=== PATIENT | female | born 1950 | race Caucasian/White ===

== ENCOUNTER 2018-10-08 11:19 | Observation (INO) | payer OTHER ==
--- OUTSIDE RECORDS SUMMARY | 2018-10-08 11:27 | XMS REPORT | Clinical Summary ---
:1950 Author Organization [facility] Address [address] [place] [address] Care Team Providers Name Role Phone Duran Uribe MD Primary Care Provider Allergies Active Allergy Reactions Severity Noted Date Comments Amoxicillin-Pot Clavulanate 07/10/2017 Terrible belly cramps and vomiting Ciprofloxacin 08/13/2017 unknown Clindamycin Anaphylaxis High 08/13/2017 Doxycycline Rash Low 08/13/2017 Levofloxacin Anaphylaxis High 08/13/2017 Nitrofurantoin 08/13/2017 Shortness of breath Monohyd/M-Cryst No Known Allergies 03/23/2016 Sulfa (Sulfonamide Rash Low 08/13/2017 Antibiotics) Vancomycin 08/13/2017 Unknown Medications Medication Sig Dispensed Refills Start Date End Date Status dicyclomine (BENTYL) Take 1 capsule 120 capsule 0 11/15/2017 11/16/19 Active 10 MG capsule (10 mg total) 19 by mouth 4 (four) times a day before meals and nightly. conjugated estrogens Insert 0.5 g 30 g 5 04/29/2018 04/29/20 Active (PREMARIN) 0.625 into the 19 mg/gram vaginal vagina daily. creamIndications: Apply with Vaginal atrophy finger to vagina daily for 2 weeks. Following this, apply twice weekly. lisinopril Take 5 mg by 0 06/05/2017 Active (PRINIVIL,ZESTRIL) 5 mouth 2 (two) mg tablet times a day. metoprolol tartrate Take 50 mg by 2 06/28/2017 Active (LOPRESSOR) 50 mg mouth 2 (two) tablet times a day. glipiZIDE Take 5 mg by 4 07/08/2017 Active (GLUCOTROL) 5 MG 24 mouth daily. hr tablet HYDROcodone-acetamin Take 1 tablet 0 Active ophen (NORCO) by mouth every 7.5-325 mg per 6 (six) hours tablet as needed for moderate pain. famotidine (PEPCID) Take 20 mg by 0 Active 20 MG tablet mouth 2 (two) times a day. magnesium oxide Take 400 mg by 0 Active (MAG-OX) 400 mg mouth 2 (two) tablet times a day. polyethylene glycol Take 17 g by 0 Active (MIRALAX) 17 gram mouth daily as packet needed for constipation. psyllium husk Take by mouth 0 Active (METAMUCIL) 3.4 daily. gram/5.4 gram powder potassium chloride Take 10 mEq by 0 Active (KLOR-CON) 10 MEQ CR mouth 2 (two) tablet times a day. DOCUSATE SODIUM Take 1 tablet 0 Active (COLACE ORAL) by mouth 2 (two) times a day. b complex vitamins Take 1 tablet 0 Active (B COMPLEX-VITAMIN by mouth B12) tablet daily. pediatric Chew. 0 Active multivitamin-iron tablet,chewable donepezil (ARICEPT) Take 10 mg by 0 Active 5 MG tablet mouth nightly. diazePAM (VALIUM) 2 Take 2 mg by 0 Active MG tablet mouth 3 (three) times a day. ibuprofen Take 800 mg by 0 Active (ADVIL,MOTRIN) 200 mouth 2 (two) MG tablet times a day. oxybutynin Take 1 tablet 90 tablet 0 06/18/2018 06/18/19 Active (DITROPAN) 5 MG (5 mg total) 20 tablet by mouth 3 (three) times a day as needed for bladder spasms. pyridoxine, vitamin Take 100 mg by 0 Active B6, (B-6) 100 MG mouth. tablet lansoprazole Take 30 mg by 0 Active (PREVACID) 30 MG mouth. capsule primidone (MYSOLINE) 0 2018 Active 50 MG tablet diazePAM (VALIUM) 2 Take 2 mg by 0 06/04/2018 Active MG tablet mouth. cefdinir (OMNICEF) Take 1 capsule 14 capsule 0 05/05/2018 05/12/20 300 MG capsule (300 mg total) 18 by mouth 2 (two) times a day for 7 days. cefpodoxime (VANTIN) Take 1 tablet 14 tablet 0 05/27/2018 06/03/20 200 MG tablet (200 mg total) 18 by mouth 2 (two) times a day for 7 days. tetracycline Take 500 mg by 0 06/06/20 Discontinued (ACHROMYCIN,SUMYCIN) mouth 3 18 250 MG capsule (three) times a day. cefpodoxime (VANTIN) Take 1 tablet 14 tablet 0 06/06/2018 06/13/20 200 MG tablet (200 mg total) 18 by mouth 2 (two) times a day for 7 days. phenazopyridine Take 1 tablet 10 tablet 0 06/06/2018 06/09/20 (PYRIDIUM) 100 MG (100 mg total) 18 tablet by mouth 3 (three) times a day as needed for bladder spasms for up to 3 days. traMADol (ULTRAM) 50 Take 1 tablet 20 tablet 0 06/06/2018 06/16/20 mg tablet (50 mg total) 18 by mouth every 6 (six) hours as needed for moderate pain for up to 10 days. oxybutynin Take 1 tablet 90 tablet 0 06/19/2018 06/25/19 Discontinued (DITROPAN) 5 MG (5 mg total) 19 tablet by mouth 3 (three) times a day as needed for bladder spasms for up to 30 days. oxybutynin Take 1 tablet 30 tablet 11 06/25/2018 07/25/19 (DITROPAN) 5 MG (5 mg total) 19 tablet by mouth 3 (three) times a day as needed for bladder spasms for up to 30 days. Active Problems Problem Noted Date Chronic cystitis 07/09/2018 Overview: Mild bladder irrigation today. Significant bladder pain, tolerates little irrigation so might not clear infection. pretreat uribel Lidocaine tolerated Multiple drug allergies 07/09/2018 Overview: Consider allergy testing to determine if true allergies to give us more options. TIA (transient ischemic attack) 09/03/2017 Urinary tract infection 08/20/2017 Rectal prolapse 08/19/2017 Essential tremor 03/23/2016 Focal dystonia 03/23/2016 Idiopathic peripheral neuropathy 03/23/2016 Urticaria 03/23/2016 Altered mental state 03/02/2016 Anxiety 10/31/2015 Allergic rhinitis 04/29/2015 Arthralgia of right knee 04/29/2015 Acute kidney failure, unspecified 04/29/2015 Acute pain of left shoulder 03/17/2015 Encounters Date Type Specialty Care Team Description 09/26/2018 Telephone Urology Enriqueta Hernandez MD 07/08/2018 Office Visit Urology Yesenia Bonds, Chronic cystitis ( Primary Dx); DIEGO Multiple drug allergies 06/30/2018 Telephone UrologEnriqueta Gaytan MD 06/25/2018 Office Visit Urology Enriqueta Hernandez Frequent UTI (Primary Dx); MD Reilly Chronic cystitis 06/25/2018 Telephone UrologEnriqueta Gaytan MD 06/19/2018 Telephone Urology Enriqueta Hernandez MD 06/19/2018 Orders Only Urology Enriqueta Hernandez MD 06/19/2018 Telephone Urology Enriqueta Hernandez MD 06/18/2018 Telephone Urology Enriqueta Hernandez MD 06/18/2018 Refill Urology Enriqueta Hernandez MD 06/06/2018 Anesthesia Event Urology Raymundo Mccall, DO 06/06/2018 Surgery Urology Enriqueta Hernandez CYSTOSCOPY WITH MD Reilly BLADDER BIOPSY, CYSTOGRAM 06/06/2018 Hospital Encounter Urology Enriqueta Hernandez Recurrent UTI MD Reilly 05/28/2018 Telephone Urology Enriqueta Hernandez MD 05/27/2018 Procedure visit UrologEnriqueta Gaytan Recurrent UTI MD Reilly (Primary Dx) 05/05/2018 Orders Only UrologEnriqueta Gaytan MD 05/05/2018 Telephone UrologEnriqueta Gaytan MD 04/29/2018 Office Visit Urology Enriqueta Hernandez Frequent UTI (Primary Dx); MD Reilly Vaginal atrophy 02/26/2018 Telephone Urology Mariaelena Martinez MD 12/26/2017 Telephone Gastroenterology Kurt Salas LVN 12/13/2017 Office Visit General Surgery Oswald Perdomo Functional diarrhea (Primary Dx); MD Perez Chronic urinary tract infection 11/15/2017 Office Visit General Surgery Oswald Perdomo Rectal prolapse ( Primary Dx); MD Perez Lower abdominal pain; Diarrhea, unspecified type after 10/07/2017 Family History Medical History Relation Name Comments Breast cancer Mother Relation Name Status Comments Father Mother Social History Tobacco Use Types Packs/Day Years Used Date Former Smoker Cigarettes Quit: 2001 Smokeless Tobacco: Never Used Alcohol Use Drinks/Week oz/Week Comments No occasional Sex Assigned at Date Recorded Not on file Job Start Date Occupation Industry Not on file Not on file Not on file Travel History Travel Start Travel End No recent travel history available. Last Filed Vital Signs Vital Sign Reading Time Taken Blood Pressure 131/80 07/08/2018 11:37 AM [facility] Pulse 102 07/08/2018 11:37 AM [facility] Temperature 36.7 C (98.1 F) 06/06/2018 2:00 PM [facility] Respiratory Rate 19 06/06/2018 2:00 PM [facility] Oxygen Saturation 94% 06/06/2018 2:00 PM [facility] Inhaled Oxygen Concentration - - Weight 68.2 kg (150 lb 5 oz) 06/06/2018 9:55 AM [facility] Height 182.9 cm (6') 06/06/2018 9:55 AM [facility] Body Mass Index 20.39 06/06/2018 9:55 AM [facility] Plan of Treatment Health Maintenance Due Date Last Done Comments BREAST CANCER SCREENING 1998 COLON CANCER SCREENING 1998 SHINGLES VACCINES (#1) 1998 65+ PNEUMOCOCCAL VACCINE (1 of 2 - PCV13) 2013 PNEUMOCOCCAL POLYSACCHARIDE VACCINE AGE 65 AND OVER 2013 INFLUENZA VACCINE 01/15/2019 Procedures Procedure Name Priority Date/Time Associated Comments Diagnosis URINE CULTURE Routine 06/25/2018 10:39 Frequent UTI Results for this AM [facility] procedure are in the results section. [id number] Routine 06/25/2018 9:24 Frequent UTI Results for this AM [facility] procedure are in the results section. POC URINALYSIS Routine 06/25/2018 9:24 Frequent UTI Results for this DIPSTICK AM [facility] procedure are in the results section. SURGICAL PATHOLOGY Routine 06/06/2018 3:36 Results for this REQUEST PM [facility] procedure are in the results section. CYTOLOGY Routine 06/06/2018 1:23 Results for this (NON-GYNECOLOGICAL) PM [facility] procedure are in REQUEST the results section. FL CYSTOGRAM MINIMUM Routine 06/06/2018 12:50 Results for this 3 VW PM [facility] procedure are in the results section. POC GLUCOSE Routine 06/06/2018 12:48 Results for this PM [facility] procedure are in the results section. CO AN ELECTIVE Routine 06/06/2018 11:53 SUPRAGLOTTIC AIRWAY AM [facility] Procedure Note - Rebecca Arshad CRNA - 06/06/2018 11:53 AM [facility] ANESTHESIA INTUBATION Performed by: Rebecca Arshad CRNA Authorized by: Zack Puga MD Location: OR Urgency: Elective Difficult Airway: No Anesthesiologist: Raymundo Mccall DO Resident/SANITARY ENGINEER/AA: Rebecca Arshad CRNA Performed by: resident/SANITARY ENGINEER/AA Preoxygenated with 100% O2: Yes Final Airway Type: Supraglottic airway Final LMA: Ambu LMA Size: 4 Number of Attempts at Approach: 1 CYSTO, WITH BLADDER BIOPSY 06/06/2018 11:00 AM [facility] Recurrent UTI Special Needs REQ 1100 START POC GLUCOSE Routine 06/06/2018 10:26 AM Results for this [facility] procedure are in the results section. URINE CULTURE Routine 05/27/2018 11:03 AM Recurrent UTI Results for this [facility] procedure are in the results section. POC URINALYSIS Routine 05/27/2018 10:20 AM Recurrent UTI Results for this DIPSTICK [facility] procedure are in the results section. after 10/07/2017 Results Urine culture (06/25/2018 10:39 AM [facility])Only the most recent of2 resultswithin the time period is included. Urine culture SEE NOTE [facility] Comment: CULTURE, URINE, ROUTINE MICRO NUMBER:[id number] TEST STATUS: FINAL SPECIMEN SOURCE: URINE SPECIMEN QUALITY:ADEQUATE RESULT:Upon further incubation: Three or more organisms present, each greater than 10,000 cu/mL. May represent normal leandro contamination from external genitalia. No further testing is required. Specimen Urine Resulting Agency Comment Performing Organization Information: Site ID: [id number] Name: [facility] Address: [address] [place] [id number] Director: Karley Pete Performing Organization Address City/State/Zipcode Phone Number [employer] [place] [address] POC BLADDER SCAN/PVR (06/25/2018 9:24 AM [facility]) Volume 69mlComment: pvr Specimen Urine POC urinalysis dipstick (06/25/2018 9:24 AM [facility])Only the most recent of2 resultswithin the time period is included. Color urine, POC Yellow Clarity urine, POC Clear Glucose urine, POC Negative Negative Bilirubin urine, POC Negative Negative Ketones urine, POC Negative Negative Specific gravity urine, POC 1.025 1.005 - 1.030 Blood urine, POC Large (A) Negative pH urine, POC 6.5 5.0, 5.5, 6.0, 6.5, 7.0, 7.5, 8.0, 8.5 Protein urine, POC 1+ (A) Negative Urobilinogen urine, POC <2.0 <2.0 Nitrite urine, POC Positive (A) Negative Leukocyte esterase urine, POC Moderate (A) Negative Specimen Urine Surgical pathology request (06/06/2018 3:36 PM [facility]) [facility] DEPARTMENT OF PATHOLOGY AND GENOMIC MEDICINE Surgical pathology report See link below for PDF [facility] DEPARTMENT OF Lab Report PATHOLOGY AND GENOMIC MEDICINE Result status This is Final Report [facility] DEPARTMENT OF for [id number] PATHOLOGY AND GENOMIC MEDICINE Performing Organization Address [facility] Phone Number [facility] DEPARTMENT OF PATHOLOGY AND [address] [place] [phone] GENOMIC MEDICINE Cytology (non-gynecological) request (06/06/2018 1:23 PM [facility]) [facility] DEPARTMENT OF PATHOLOGY AND GENOMIC MEDICINE Cytology See link below for PDF [facility] DEPARTMENT OF (non-gynecological) report Lab Report PATHOLOGY AND GENOMIC MEDICINE Result status This is Final Report [facility] DEPARTMENT OF for [id number] PATHOLOGY AND GENOMIC MEDICINE Performing Organization Address [facility] Phone Number [facility] DEPARTMENT PATHOLOGY AND [address] [place] [phone] [facility] MEDICINE [place] Cystogram [employer] 3 Views (06/06/2018 12:50 PM [facility]) Narrative Performed At IMPRESSION:C-arm Fluoroscopy under 1 hour was provided in the OR for RADIANT the referring physician.A radiologist was not present during the procedure. Refer to the Operative report issued by the performing provider for procedure details. Procedure Note Interface, Radiology Results Incoming - 06/06/2018 4:34 PM [facility] IMPRESSION: C-arm Fluoroscopy under 1 hour was provided in the OR for the referring physician. A radiologist was not present during the procedure. Refer to the Operative report issued by the performing provider for procedure details. Performing Organization Address City/[facility] Phone Number [facility] [address] [place] [phone] POC glucose (06/06/2018 12:48 PM [facility])Only the most recent of2 resultswithin the time period is included. POC glucose 115 (H) 65 - 99 mg/dL [facility] Comment: Meter ID: [id number] Bit Sharpener Operator: Concetta Ortega Performing Organization Address City/State/Zipcode Phone Number [facility] DEPARTMENT OF PATHOLOGY AND [address] [place] [address] GENOMIC MEDICINE [address] [address] after 10/07/2017 Insurance Payer Benefit Plan / Group Subscriber ID Type Phone Address MEDICARE MEDICARE PART A AND B xxxxxxxxxx Medicare [place], [place] MEDICARE MEDICARE PART A AND B xxxxxxxxxx Medicare [place] [employer] xxxxxx-xx Commercial Advance Directives Patient has advance care planning documents on file. For more information, please contact:[address] [address]
--- OUTSIDE RECORDS SUMMARY | 2018-10-08 11:27 | XMS REPORT | Continuity of Care Document ---
:1950 Author Organization Interface Problems Problem Status Onset Classification Date Comments Source Date Reported Urinary tract 12/17/2017 [facility] infection, site 8 not specified Escherichia Active Problem 12/17/2017 Problem [facility] coli<sup>1, 8 added by 2</sup> Discern Expert. TIA Active [facility] 8 [place] UTI Active [facility] 8 [place] R41.3 - OTHER Active [facility] AMNESIA 7 [place] LEFT SHOULDER Active [facility] DISLOCATION PAIN 7 [facility] Transient 12/17/2017 [facility] cerebral ischemic attack, unspecified Acute kidney 12/17/2017 [facility] failure, unspecified Type 2 diabetes 12/17/2017 [facility] mellitus with diabetic neuropathy, unspecified Unspecified 12/17/2017 [facility] dementia without behavioral disturbance Obstructive and 12/17/2017 [facility] reflux uropathy, unspecified Unspecified 12/17/2017 [facility] Escherichia coli [E. coli] as the cause of diseases classified elsewhere Essential 12/17/2017 [facility] hypertension Body mass index 12/17/2017 [facility] 23.0-23.9, adult Personal history 12/17/2017 [facility] of urinary infections TRANSIENT Active [facility] CEREBRAL [place] ISCHEMIC ATTACK, UNSP URINARY TRACT Active [facility] INFECTION, SITE [place] NOT SPECIF Medications Medication Details Route Status Patient Ordering Order Source Instructions Provider Date Norvasc 10 mg, 2 tab, No Longer Route: PO, Active 018 [place] [facility] form: TAB, Daily, Dosing Weight 76.96, kg, Start date: 09/09/17 9:00:00 CDT, Duration: 30 day, Stop date: 10/08/17 9:00:00 CDTNotes: (Same as: Norvasc) amLODIPine 5 mg, 1 tab, Inactive Route: PO, 018 [place] [facility] form: TAB, ONCE, Start date: 09/08/17 15:13:00 CDT, Stop date: 09/08/17 15:13:00 CDTNotes: (Same as: Norvasc) Metamucil 3.4 gm, 1 pkt, No Longer MH Route: PO, Active 018 [place] [facility] Form: PDR/REC, Dosing Weight 76.96, kg, Daily, Start date: 09/08/17 9:00:00 CDT, Duration: 30 day, Stop date: 10/07/17 9:00:00 CDTNotes: (Same as: Metamucil) Mix in 8 oz liquid with meal. Haldol 2 mg, 2 tab, Inactive Route: PO, 018 [place] Drug form: TAB, ONCE, Dosing Weight 76.96, kg, PRN Agitation, Priority: NOW, Start date: 09/08/17 0:32:00 CDTNotes: (Same as: Haldol) Norvasc 5 mg, 1 tab, No Longer Route: PO, Active 018 [place] Drug form: TAB, Daily, Dosing Weight 76.96, kg, Priority: NOW, Start date: 09/07/17 13:01:00 CDT, Duration: 30 day, Stop date: 10/07/17 9:00:00 CDTNotes: (Same as: Norvasc) Invanz 1 gm, Route: No Longer IVPB, [id number], Active 018 [place] Dosing Weight 76.96, kg, Start date: 09/06/17 12:00:00 CDT, Duration: 14 day, Stop date: 09/19/17 12:00:00 CDT, ABX Indication: Urinary Tract InfectionNotes : (Same as: INVanz) Refrigerate. NOT COMPATIBLE WITH D5W. Stable in refrigerator for 24 hours MEDICATION WASTE Product Size: 1000 mg Product Wasted: ___ mg meropenem + 500 mg, Route: Inactive MH Sodium IVPB, ABXQ8H, 018 [place] Chloride 0.9% Dosing Weight IV 100 mL 76.96, kg, CrCL=30 -49 ml/min, Extended infusion, infuse over 3 hours, Start date: 09/06/17 0:00:00 CDT, Duration: 10 day, Stop date: 09/15/17 16:00:00 CDT, ABX Indication: Urinary Tract InfectionNotes : Same as [place] MEDICATION WASTE Product Size: 500 mg Product Wasted: ___ mg multivitamin 1 tab, Route: No Longer MH with minerals PO, Drug Form: Active 018 [place] TAB, Daily, Start date: 09/05/17 9:00:00 CDT, Duration: 30 day, Stop date: 10/04/17 9:00:00 CDTNotes: (Same as:Thera-M, Theragran-M) WASTE: F/P - Black; E - Municipal Trash Bin Give with food. multivitamin 1 mL, Route: Inactive MH with iron PO, Dosing Marcellus Tripp Weight 76.96, kg, Daily, Start date: 09/04/17 9:00:00 CDT, Duration: 30 day, Stop date: 10/03/17 9:00:00 CDT Miralax 17 gm, 1 pkt, No Longer Route: PO, Active 018 [place] [facility] form: PWDR, Daily, Dosing Weight 76.96, kg, Start date: 09/04/17 9:00:00 CDT, Duration: 30 day, Stop date: 10/03/17 9:00:00 CDTNotes: Dissolve in 8 oz of water or juice. (Same as: Miralax) Tylenol 650 mg, 2 tab, No Longer Route: PO, Active 018 [place] Drug form: TAB, Q6H, Dosing Weight 76.96, kg, PRN Pain Score 1-3, Start date: 09/04/17 0:34:00 CDT, Duration: 30 day, Stop date: 10/04/17 0:33:00 CDT, For Temp > 100.4 F/painNotes: Do not exceed 4 gm/day. (Same as: Tylenol) donepezil 5 mg, 1 tab, No Longer MH Route: PO, Active 018 [place] Drug form: TAB, Bedtime, Dosing Weight 76.96, kg, Start date: 09/03/17 21:00:00 CDT, Duration: 30 day, Stop date: 10/02/17 21:00:00 CDTNotes: (Same as: Aricept) metoprolol 50 mg, 1 tab, No Longer tartrate Route: PO, Active 018 [place] Drug form: TAB, Q12H, Dosing Weight 76.96, kg, Start date: 09/03/17 21:00:00 CDT, Duration: 30 day, Stop date: 10/03/17 9:00:00 CDTNotes: (Same as: Lopressor) meropenem + 500 mg, Route: No Longer Sodium IVPB, ABXQ8H, Active 018 [place] Chloride 0.9% Dosing Weight IV 100 mL 76.96, kg, CrCL=30 -49 ml/min, Extended infusion, infuse over 3 hours, Start date: 09/03/17 20:00:00 CDT, Duration: 10 day, Stop date: 09/13/17 12:00:00 CDT, ABX Indication: Urinary Tract InfectionNotes : Same as [place] MEDICATION WASTE Product Size: 500 mg Product Wasted: ___ mg Enoxaparin 40 mg, 0.4 mL, No Longer Route: SUB-Q, Active 018 [place] Drug form: INJ, [id number], Dosing Weight 76.96, kg, Start date: 09/03/17 17:00:00 CDT, Stop date: 10/02/17 17:00:00 CDTNotes: (Same as: Lovenox) meropenem 500 mg, Route: Inactive IVPB, ABXQ8H, 018 [place] Dosing Weight 76.96, kg, CrCL=30 -49 ml/min, Extended infusion, infuse over 3 hours, Start date: 09/03/17 17:00:00 CDT, Duration: 10 day, Stop date: 09/13/17 9:00:00 CDT, ABX Indication: Urinary Tract InfectionNotes : Same as [place] MEDICATION WASTE Product Size: 500 mg Product Wasted: ___ mg Lisinopril 5 mg, 1 tab, Inactive Route: PO, 018 [place] Drug form: TAB, BID, Dosing Weight 76.96, kg, Start date: 09/03/17 17:00:00 CDT, Duration: 30 day, Stop date: 10/03/17 9:00:00 CDTNotes: (Same as: Prinivil, Zestril) Famotidine 20 20 mg, 1 tab, No Longer 2 MH MG Oral Tablet Route: PO, Active [facility] Tri[facility] Drug form: TAB, Daily, Dosing Weight 76.96, kg, Start date: 09/03/17 17:00:00 CDT, Stop date: 10/03/17 9:00:00 CDTNotes: (Same as: Pepcid) Insulin Lispro 4 unit, 0.04 No Longer 2 MH mL, Route: Active Marcellus Tripp SUB-Q, Drug form: SOLN, Bedtime, Dosing Weight 76.96, kg, PRN Blood Glucose Results, Start date: 09/03/17 16:56:00 CDT, Duration: 30 day, Stop date: 10/03/17 16:55:00 CDTNotes: (Same as: Humalog ) Roll in palms of hands gently; Do not shake `vigorously. "Single Patient Use Only " WASTE: F/P - Black; E - Municipal Trash Bin Stable for 28 days at room temperature. Expires in days from Date Glucagon 1 mg, Route: No Longer 2 MH IM, Drug form: Active Marcellus Tripp PDR/INJ, PRN, Dosing Weight 76.96, kg, PRN Blood Glucose Results, Start date: 09/03/17 16:56:00 CDT, Duration: 30 day, Stop date: 10/03/17 16:55:00 CDT Dextrose 50% 25 gm, 50 mL, No Longer 2 MH Syringe Route: IVP, Active Marcellus Tripp Drug Form: INJ, Dosing Weight 76.96, kg, PRN, PRN Blood Glucose Results, Start date: 09/03/17 16:56:00 CDT, Duration: 30 day, Stop date: 10/03/17 16:55:00 CDT Saline Flush 10 ml, Route: No Longer 2 MH 0.9% IVP, Drug Active Marcellus [place] Form: INJ, Dosing Weight 76.96, kg, PRN, PRN Line Flush, Start date: 09/03/17 16:29:00 CDT, Duration: 30 day, Stop date: 10/03/17 16:28:00 CDTNotes: (Same as: BD Posiflush) Sodium 1,000 mL, No Longer MH Chloride 0.9% Rate: 100 Active 018 [place] IV 1,000 mL ml/hr, Infuse over: 10 hr, Route: IV, Dosing Weight 76.96 kg, Total Volume: 1,000, Start date: 09/03/17 16:29:00 CDT, Duration: 30 day, Stop date: 10/03/17 16:28:00 CDT, 1.98, m2 diazepam 2 mg 2 mg=1 tab, Active MH oral tablet PO, TID, # 30 018 [place] tab, 0 Refill(s) metoprolol 50 mg=1 tab, Active tartrate 50 mg PO, BID, # 180 018 [place] oral tablet tab, 0 Refill(s) Docusate 100 mg=1 cap, Active Sodium 100 MG PO, BID, # 60 018 [place] Oral Capsule cap, 0 [Colace] Refill(s) lisinopril 5 5 mg=1 tab, Active MH mg oral tablet PO, BID, # 30 018 [place] tab, 0 Refill(s) potassium See Active chloride 20 Instructions, 018 [place] mEq oral 0.5 tab PO tablet, BID, 0 extended Refill(s) release 24 HR 5 mg=1 tab, Active Glipizide 5 MG PO, Breakfast, 018 [place] Extended # 30 tab, 1 Release Tablet Refill(s) Miralax 17 gm, PO, Active Daily, 0 018 [place] Refill(s) Mag-Ox 400 400 mg=1 tab, Active MH PO, BID, # 20 018 [place] tab, 0 Refill(s) donepezil 5 mg 5 mg=1 tab, Active MH oral tablet PO, Daily, At 018 [place] bedtime, # 30 tab, 0 Refill(s) multivitamin 1 mL=, PO, Active MH with iron Daily, 0 018 [place] Refill(s) Famotidine 20 20 mg=1 tab, Active MH MG Oral Tablet PO, BID, # 60 018 [place] tab, 0 Refill(s) Vitamin B-12 250 Active MH 250 mcg oral microgram=1 018 [place] tablet tab, PO, Daily, # 30 tab, 0 Refill(s) Allergies, Adverse Reactions, Alerts Substance Category Reaction Severity Reaction Status Date Comments Source type Reported sulfa drugs Assertion Drug Active MH allergy [place] ciprofloxacin Assertion Drug Active MH allergy [place] doxycycline Assertion Drug Active MH allergy [place] clindamycin Assertion Drug Active MH allergy [place] vancomycin Assertion Drug Active MH allergy [place] Augmentin Assertion Drug Active MH allergy [place] Levaquin Assertion Drug Active MH allergy [place] Immunizations Immunization Date Given Site Status Last Updated Comments Source Results Order Name Results Value Reference Date Interpretation Comments Source Range Chest 1 v Chest 1 v Clinical Indication: Line Placement - Chest 1 view for line placement 09/06 - [facility] for for - [place] Placement Placement DX Comparison: None DX Read by: Xavier Wilosn MD Dictated Date/time: 09/06/17 15:53 FINDINGS: Single AP view of the chest is submitted for interpretation. The left costophrenic angle is excluded from the examination. Electronically Signed by: Xavier Wilson MD 09/06/17 16:28 FINAL REPORT Right IJ CVC has been placed with its tip overlying the lower SVC. There is no visible pneumothorax on this examination. There is mild interstitial pulmonary edema. The lungs are otherwise clear. There are no pleural effusions. There is no visible pneumothorax. Cardiomediastinal contours are stable. Anterior fusion hardware overlies the lower cervical spine. No gross bony normalities are identified. IMPRESSION: 1. Right IJ CVC placement without visible pneumothorax. 2. Left CP angle is excluded from this examination. SL: [id number] CVC insert CVC insert Patient Name: MIHIR VASQUEZ 09/06 - [facility] non-tunnel non-tunnel /2017 - [place] age 5+ yrs age 5+ yrs : 1950; Age: 67 years Female VR VR MR: [id number] Read by: Kendrick Esposito MD Dictated Date/time: 09/06/17 16:09 Study: CVC insert non-tunnel age 5+ yrs VR 09/06/2017 10:51 AM CDT Electronically Signed by: Kendrick Esposito MD 09/06/17 16 :13 FINAL REPORT PROCEDURE: Ultrasound-guided placement of a nontunneled right IJ central catheter CLINICAL INFORMATION: Need for IV access CONSENT: The procedure, risks, benefits and alternatives were discussed with the patient and written informed consent was obtained. A "time out" was performed per protocol prior to the procedure. TECHNIQUE: caster operator: Dr. Esposito Preoperative diagnosis: Need for IV access Postoperative diagnosis: Same Fluoroscopy time: None Estimated blood loss: Minimal Pain control: 1% lidocaine was administered for local anesthesia. The patient's right neck was prepped and draped using maximum sterile barrier technique. Preprocedure ultrasound demonstrated a patent right internal jugular vein and an image stored in the medic al record. The overlying skin was anesthetized with 1% lidocaine. Under sterile ultrasound guidance, an 18-gauge needle was advanced into the right internal jugular vein. Following placement of a 0.035 inch wire and tract dilatation, a 7 [place] triple-lumen catheter (Arrow) was advanced over the wire. The wire was removed and the ports were flushed with saline. The catheter was affixed to the skin an d sterile dressings applied. Patient tolerated the procedure well without immediate complication. IMPRESSION: Successful placement of a nontunneled right IJ central catheter. SL: [id number] ANEMIA Vitamin B12 928 pg/mL 254 - 1320 09/05 MH STUDY Lvl /2017 [place] ELECTROLYTE AGAP 13.5 meq/L 10.0 - 09/05 MH S 20.0 [place] ELECTROLYTE Calcium Lvl 9.1 mg/dL 8.5 - 10.5 09/05 S [place] ELECTROLYTE CO2 24 meq/L 24 - 32 09/05 S /2017 [place] ELECTROLYTE Chloride Lvl 107 meq/L 95 - 109 09/05 S [place] ELECTROLYTE Creatinine 1.23 mg/dL 0.50 - 09/05 MH S Lvl 1.40 [place] ELECTROLYTE Sodium Lvl 140 meq/L 135 - 145 09/05 S [place] ELECTROLYTE Potassium 4.5 meq/L 3.5 - 5.1 09/05 S Lvl /2017 [place] ELECTROLYTE Glucose Lvl 161 mg/dL 70 - 99 09/05 MH S [place] ELECTROLYTE BUN 14 mg/dL - 09/05 S /2017 [place] ELECTROLYTE eGFR 45 09/05 Result Comment: The eGFR is calculated using the CKD-EPI formula. In most young, healthy individuals the eGFR will be >90 mL/ min/1.73m2. The eGFR declines with age. An eGFR of 60-89 may be normal in MH S mL/min/1.7 some populations, particularly the elderly, for whom the CKD-EPI formula has not been extensively validated. Use of the eGFR is not recommended in the following populations: [address] Individuals with unstable creatinine concentrations, including patients and those with serious co-morbid conditions. Patients with extremes in muscle mass or diet. The data above are obtained from the National Kidney Disease Education Program (NKDEP) which additionally recommends that when the eGFR is used in patients with extremes of body mass index for purposes of drug dosing, the eGFR should be multiplied by the estimated BMI. ELECTROLYTE AGAP 10.5 meq/L 10.0 - 09/04 MH S 20.0 [place] ELECTROLYTE eGFR 36 09/04 Result Comment: The eGFR is calculated using the CKD-EPI formula. In most young, healthy individuals the eGFR will be >90 mL/ min/1.73m2. The eGFR declines with age. An eGFR of 60-89 may be normal in S mL/min/1. some populations, particularly the elderly, for whom the CKD-EPI formula has not been extensively validated. Use of the eGFR is not recommended in the following populations: [address] Individuals with unstable creatinine concentrations, including patients and those with serious co-morbid conditions. Patients with extremes in muscle mass or diet. The data above are obtained from the National Kidney Disease Education Program (NKDEP) which additionally recommends that when the eGFR is used in patients with extremes of body mass index for purposes of drug dosing, the eGFR should be multiplied by the estimated BMI. ELECTROLYTE BUN 19 mg/dL 7 - 09/04 S [place] ELECTROLYTE Creatinine 1.47 mg/dL 0.50 - 09/04 MH S Lvl 1.40 [place] ELECTROLYTE Glucose Lvl 148 mg/dL 70 - 99 09/04 [place] ELECTROLYTE Calcium Lvl 8.5 mg/dL 8.5 - 10.5 09/04 [place] ELECTROLYTE CO2 28 meq/L 24 - 32 09/04 [place] ELECTROLYTE Potassium 3.5 meq/L 3.5 - 5.1 09/04 S Lvl [place] ELECTROLYTE Chloride Lvl 103 meq/L 95 - 109 09/04 [place] ELECTROLYTE Sodium Lvl 138 meq/L 135 - 145 09/04 [place] HEMATOLOGY MPV 7.9 fL 7.4 - 10.4 09/04 [place] HEMATOLOGY MCH 30.5 pg 27.0 - 09/04 MH 31.0 [place] HEMATOLOGY Hct 25.6 % 36.0 - 09/04 MH 48.0 [place] HEMATOLOGY RBC 2.87 M/CMM 4.20 - 09/04 MH 5.40 [place] HEMATOLOGY Hgb 8.7 g/dL 12.0 - 09/04 MH 16.0 [place] HEMATOLOGY MCV 89.0 fL 80.0 - 09/04 MH 98.0 [place] HEMATOLOGY Platelet 205 K/CMM 133 - 450 09/04 [place] HEMATOLOGY MCHC 34.2 g/dL 32.0 - 09/04 36.0 [place] HEMATOLOGY RDW 13.5 % 11.5 - 09/04 MH 14.5 [place] HEMATOLOGY WBC 9.2 K/CMM 3.7 - 10.4 09/04 [place] CEFAZOLIN:S Culture: 10,000 - 50,000 CFU/mL Escherichia coli 09/03 [facility]:PT:ISOL Urine [place] ATE:ORDQN:M This Organism Produces An Extended Spectrum IC Beta Lactamase (ESBL). Multi-drug Resistant Organism CEFAZOLIN:S Escherichia Escherichi 09/03 [facility]:PT:ISOL coli a coli [place] ATE:ORDQN:M IC URINE AND UA <=1.0 0.1 - 1.0 09/03 [facility]OOL Urobilinogen mg/dL [place] URINE AND UA Sq Epi None Seen 09/03 STOOL [place] URINE AND UA Color Yellow Yellow 09/03 [place] *NA* (09/03/17 6:38 PM) URINE AND UA pH 6.0 5.0 - 8.0 09/03 [place] URINE AND UA Spec Grav 1.008 <=1.030 09/03 [place] URINE AND UA Turbidity Marked Clear 09/03 [place] *ABN* (09/03/17 6:38 PM) URINE AND UA Glucose Negative Negative 09/03 [facility]OOL mg/dL mg/dL [place] URINE AND UA Protein 100 mg/dL Negative 09/03 [facility]OOL mg/dL [place] URINE AND UA Blood Small Negative 09/03 [place] *ABN* (09/03/17 6:38 PM) URINE AND UA Bili Negative Negative 09/03 [place] *NA* (09/03/17 6:38 PM) URINE AND UA Ketones Negative Negative 09/03 [facility] mg/dL mg/dL [place] URINE AND UA Leuk Est Large Negative 09/03 [place] *ABN* (09/03/17 6:38 PM) URINE AND UA Nitrite Negative Negative 09/03 [place] (09/03/17 6:38 PM) URINE AND UA Bacteria Many /HPF None Seen 09/03 STOOL /HPF [place] URINE AND UA WBC null 0 - 5 09/03 [place] Brain wo Brain wo EXAM: MRI BRAIN WITHOUT CONTRAST 09/03 [facility] contrast contrast - [place] MRI DATE: 09/03/2017 4:27 PM CDT Read by: Brandon Hylton MD Dictated Date/time: 09/03/17 18:59 Electronically Signed by: Brandon Hylton MD 09/03/17 19:05 FINAL REPORT INDICATION: - r/o stroke. Weakness. Difficulty walking. Memory loss. ADDITIONAL INFORMATION AND CONTRAST: None. COMPARISON: MRI brain of 03/04/2017. TECHNIQUE: Multiplanar, mutisequence MRI of the brain without contrast. FINDINGS: Diffusion weighted images demonstrate no focal signal abnormality. Diffuse cerebral atrophy and moderate chronic small vessel ischemic change. No acute intracranial hemorrhage detected. The ventricles are normal in size and symmetric. No extra-axial fluid collection id entified. Rader-white distinction is preserved. No mass lesion or midline shift detected. The intracranial arterial and venous structures demonstrate normal flow voids. Extensive chronic inflammatory change of the paranasal sinuses with opacification of the sphenoid sinus. Complete Opacification of the right mastoid air cells. Partial opacification of the left mastoid air cells. IMPRESSION: 1. No definite acute infarct or intracranial hemorrhage detected. 2. Diffuse cerebral atrophy and moderate chronic small vessel ischemic change. SL: [id number] Brain w/wo Brain w/wo EXAM: MRI BRAIN WITH AND WITHOUT CONTRAST 03/04 [facility] contrast contrast MRI /2016 - [place] MRI DATE: 03/04/2017 11:47 AM CDT Read by: Perez Mack MD Dictated Date/time: 03/05/17 01:41 Electronically Signed by: Perez Mack MD 03/05/17 01:46 FINAL REPORT INDICATION: R41.3 Other amnesia. COMPARISON: None. TECHNIQUE: Multiplanar, multisequence MRI imaging of the brain was acquired with and without intravenous contrast. A total of 9 mL Dotarem was administered intravenously. FINDINGS: No acute intracranial hemorrhage, midline shift, or mass effect is identified. Mildly confluent areas of T2/FLAIR signal abnormality within the periventricular white matter and singh are noted. The ventr icles and sulci are prominent, without evidence for hydrocephalus. No evidence for restricted diffusion is present to suggest an acute infarct. There is no abnormal gradient susceptibility artifact or intracranial enhancement. Bilateral mastoid effusions are noted, right greater than left. Mucosal thickening within the sphenoid sinuses is noted. The orbits are unremarkable. The major intracranial flow voids are maintained. IMPRESSION: 1. No acute intracranial ischemia or infarction. 2. Mild to moderate chronic microangiopathic changes and diffuse parenchymal volume loss. No hydrocephalus. 3. Bilateral mastoid effusions, right greater than left. 4. Mucosal disease of the sphenoid sinuses. SL: [id number] Vital Signs Vital Sign Value Date Comments Source Systolic (mm Hg) 134 09/10/2017 [facility] Diastolic (mm Hg) 75 09/10/2017 [facility] Respitory Rate 18 09/10/2017 [facility] Heart Rate 72 09/10/2017 [facility] Temperature Oral (F) 98.2 F 09/10/2017 [facility] Temperature Oral (F) 98.4 F 09/10/2017 [facility] Heart Rate 67 09/10/2017 [facility] Respitory Rate 18 09/10/2017 [facility] Systolic (mm Hg) 137 09/10/2017 [facility] Diastolic (mm Hg) 72 09/10/2017 [facility] Temperature Oral (F) 98.2 F 09/10/2017 [facility] Heart Rate 76 09/10/2017 [facility] Respitory Rate 18 09/10/2017 [facility] Systolic (mm Hg) 154 09/10/2017 [facility] Diastolic (mm Hg) 81 09/10/2017 [facility] Height 182.88 cm 09/03/2017 [facility] BMI Calculated 23.01 09/03/2017 [facility] Weight 76.96 09/03/2017 [facility] Encounters Location Location Encounter Encounter Reason Attending ADM DC Status Source Details Type Number For Provider Date Date Visit [facility] Outpt Diag [id number] Odalis 03/04 03/05 [facility] Christine /2016 [place] [facility] Inpatient [id number] [place] 09/03 09/10 Vincent Carbajal Jr /2017 [facility] Procedures Procedure Code Date Perfomer Comments Source Hip joint [id number] Left [facility] operations<sup>1</s up> Neck [id number] "Screws and [facility] repair<sup>2</sup> pins in, I think it was broken, neck" Shoulder [id number] Left sided - [facility] repair<sup>3</sup> two operations Tonsillectomy [id number] [facility]
--- OUTSIDE RECORDS SUMMARY | 2018-10-08 11:28 | XMS REPORT ---
:1950 [facility] [address] [place] [address] [address]. [address] [place] [address] Care Team Providers Name Role Phone Unavailable Unavailable Unavailable Problems This patient has no known problems. Allergies, Adverse Reactions, Alerts This patient has no known allergies or adverse reactions. Medications This patient has no known medications.
--- NOTE | 2018-10-08 12:28 | P.HP ---
Certification for Inpatient Patient admitted to: Inpatient Practitioner: I am a practitioner with admitting privileges, knowledge of patient current condition, hospital course, and medical plan of care. Services: Services provided to patient in accordance with Admission requirements found in Title 42 Section 412.3 of the Code of Federal Regulations Patient History Date of Service: 10/08/18 History of Present Illness: This is a 68 yr old female with PMH of diet control DM2, HTN admitted directly from Dr. Holloway for a bladder infection. 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 Ever since being dischraged from there, she stattes that she picked up a "super bug" and she has been having intermittent bladder infections since then. This time around, for the past 2-3 days, she has been having increased urinary frequency and bladder spasms. She went to see Dr. Holloway and states testing shows something concerning for another bladder infection. Due to her history of multiple infections and multiple antibiotic treatment courses, she was admitted for potential ESBL urinary infection. At the time of my exam, she was Alert, hemodynamically stable, in no acute distress. Allergies No Known Allergies Allergy (Verified 10/08/18 12:01) Home medications list reviewed: Yes Home Medications: Cyanocobalamin (Vitamin B-12) [Vitamin B12] 1 tab PO DAILY 10/08/18 Donepezil HCl 10 mg PO BEDTIME 10/08/18 Lansoprazole 1 cap PO DAILY 10/08/18 Magnesium Oxide [Mag 0X*] 1 tab PO DAILY 10/08/18 Metoprolol Tartrate [Lopressor*] 50 mg PO DAILY 10/08/18 Multivitamin/Iron/Folic Acid [Centrum Adults Tablet] 1 tab PO DAILY 10/08/18 diazePAM [Diazepam] 2 mg PO TID PRN 10/08/18 - Past Medical/Surgical History Diabetic: Yes -: Hypertension -: Diabetes Mellitus, type 2 -: Peripheral neuralgia -: Tremors Review of Systems 10-point ROS is otherwise unremarkable Physical Examination - Physical Exam General: Alert, In no apparent distress, Oriented x3 HEENT: Atraumatic, PERRLA, Mucous membr. moist/pink, EOMI, Sclerae nonicteric Neck: Supple, 2+ carotid pulse no bruit, No LAD, Without JVD or thyroid abnormality Respiratory: Clear to auscultation bilaterally, Normal air movement Cardiovascular: Regular rate/rhythm, Normal S1 S2 Gastrointestinal: Normal bowel sounds, No tenderness Musculoskeletal: No tenderness Integumentary: No rashes Neurological: Normal gait, Normal speech, Normal strength at 5/5 x4 extr, Normal tone, Normal affect Assessment and Plan - Problems (Diagnosis) (1) Urinary tract infection Current Visit: Yes Status: Acute Qualifiers: Urinary tract infection type: acute cystitis Hematuria presence: without hematuria Qualified Code(s): N30.00 - Acute cystitis without hematuria (2) Diabetes mellitus Current Visit: Yes Status: Acute Qualifiers: Diabetes mellitus type: type 2 Diabetes mellitus internet media planner insulin use: without internet media planner use Diabetes mellitus complication status: without complication Qualified Code(s): E11.9 - Type 2 diabetes mellitus without complications (3) Hypertension Current Visit: Yes Status: Acute Qualifiers: Hypertension type: essential hypertension Qualified Code(s): I10 - Essential (primary) hypertension (4) Peripheral neuralgia Current Visit: No Status: Chronic - Plan This is a 68 yr old female with: Urinary tract infection, suspected ESBL Admit patient to the floor with tele Dr. Holloway on board Start IV merem, pending cultures. Urine culture drawn prior to starting antibiotics. No WBC count, no tahcycardia; no evidence of sepsis at this time. If ESBL, patient may need PICC line placement along with dispo planning for [facility] IV antibiotics. Hypertension Elevated BP at this time, likely because she has not taken her BP medications today. We will restart her home medications, first dosage now. Diabetes Mellitus, type 2, diet controlled Not necessary to do accucheks at this time, unless serum glucose is consistently elevated. We will continue to monitor DVT Prophylaxis: Lovenox GI prophylaxis: None Diet: Heart healthy/Diabetic Disposition: Pending cultures. - Advance Directives Does patient have a Living Will: No Does patient have a Durable POA for Healthcare: No Time Spent Managing Pts Care (In Minutes): 55
[2018-10-08 12:34] LABS: Absolute Monocytes 0.5 K/uL (0.1-1.3); Absolute Neutrophil 4.6 K/uL (1.8-8.0); Basophils % 0.6 % (0-1.3); Eosinophils % 2.2 % (0-4.4); Hematocrit 35.2 % (36.0-45.0); Lymphocytes % 27.3 % (15.3-44.8); MPV 8.5 fL (7.6-11.3); Monocytes % 7.1 % (3.3-12.3); RBC Red Blood Cell Count 3.91 M/uL (3.86-4.86)
[2018-10-08 12:57] LABS: Magnesium 2.1 mg/dL (1.8-2.4); Phosphorus 3.9 mg/dL (2.5-4.9); Potassium 3.6 mmol/L (3.5-5.1)
[2018-10-08 12:58] LABS: Urine Appearance CLOUDY; Urine Bilirubin NEGATIVE (NEG); Urine Blood 2+ (NEG); Urine Color YELLOW; Urine Glucose NEGATIVE (NEG); Urine Protein 2+ (NEG); Urine Specific Gravity 1.015 (1.005-1.030); Urine Urobilinogen 0.2 mg/dL (0.2-1.0); Urine pH 7.5 (5.0-7.0)
[2018-10-08 13:01] LABS: Urine Microscopic Reflex ORDER UMIC
[2018-10-08 13:20] LABS: Urine Bacteria >50 /HPF (<20); Urine Culture Reflex Order REFLEXED; Urine RBC >50 /HPF (NONE SEEN); Urine White Blood Cell Casts 0-5 /LPF (NONE SEEN)
[2018-10-08 16:18] VITALS: BMI 20.3
[2018-10-08] MEDS: Meropenem 1,000 MG in NA CHLORIDE 0.9% 100 ML IV SCH (17:24)
[2018-10-08] MEDS: METOPROLOL TAR 50 MG TAB PO SCH (17:26)
[2018-10-08] MEDS: OXYBUTYNIN ER 5 MG TAB PO PRN (20:55)
[2018-10-08] MEDS: DONEPEZIL HCL 5 MG TAB PO SCH (20:56)
[2018-10-08] MEDS ORDERED: POTASSIUM CL SA 10 MEQ TAB PO ONE (21:00)
[2018-10-09] MEDS: Meropenem 1,000 MG in NA CHLORIDE 0.9% 100 ML IV SCH ×3 (01:22→16:17)
[2018-10-09] MEDS: PANTOPRAZOLE 40MG TABLET PO SCH (06:05)
[2018-10-09 06:27] LABS: Potassium 4.2 mmol/L (3.5-5.1)
[2018-10-09] MEDS: METOPROLOL TAR 50 MG TAB PO SCH (09:00)
[2018-10-09] MEDS: OXYBUTYNIN ER 5 MG TAB PO PRN (09:02)
--- NOTE | 2018-10-09 09:17 | P.PN ---
Subjective Date of Service: 10/09/18 Chief Complaint: UTI Patient seen and examined at bedside. No family at bedside. Chart reveiwed and case discussed with nursing staff. Patient complaining of left lower quadrant pain. No acute event noted overnight. Afebrile overnight. Tremors remain at baseline. Mentation at baseline Denies any cp, sob, dizziness, headaches, pre-syncope/syncopal episodes. Review of Systems 10-point ROS is otherwise unremarkable Physical Examination - Vital Signs Temperature: 98.1 F Blood Pressure: 127/75 Pulse: 62 Respirations: 18 Pulse Ox (%): 95 - Physical Exam General: Alert, In no apparent distress, Oriented x3 Neck: Supple, JVD not distended Respiratory: Clear to auscultation bilaterally, Normal air movement Cardiovascular: Regular rate/rhythm, Normal S1 S2 Gastrointestinal: Normal bowel sounds, Tenderness (LLQ), Guarding (LLQ) Musculoskeletal: No tenderness Integumentary: No rashes Neurological: Normal speech, Normal tone, Normal affect - Studies Laboratory Data (last 24 hrs) 10/09/18 05:37: Sodium 143, Potassium 4.2, BUN 21 H, Creatinine 1.23, Glucose 101 10/08/18 12:14: Sodium 141, Potassium 3.6, BUN 21 H, Creatinine 1.18, Glucose 110 H, Phosphorus 3.9, Magnesium 2.1 10/08/18 12:14: WBC 7.3, Hgb 11.8 L, Hct 35.2 L, Plt Count 236 Assessment And Plan - Current Problems (Diagnosis) (1) Urinary tract infection Current Visit: Yes Status: Acute Qualifiers: Urinary tract infection type: acute cystitis Hematuria presence: without hematuria Qualified Code(s): N30.00 - Acute cystitis without hematuria (2) Diabetes mellitus Current Visit: Yes Status: Acute Qualifiers: Diabetes mellitus type: type 2 Diabetes mellitus terminal worker insulin use: without terminal worker use Diabetes mellitus complication status: without complication Qualified Code(s): E11.9 - Type 2 diabetes mellitus without complications (3) Hypertension Current Visit: Yes Status: Acute Qualifiers: Hypertension type: essential hypertension Qualified Code(s): I10 - Essential (primary) hypertension (4) Peripheral neuralgia Current Visit: No Status: Chronic - Plan This is a 68 yr old female with: Urinary tract infection, suspected ESBL Dr. Holloway on board, Recommendations appreciated. Continue IV merem, still pending cultures. Urine culture drawn prior to starting antibiotics. No WBC count, no tahcycardia; no evidence of sepsis at this time. If ESBL, patient may need PICC line placement along with dispo planning for retirement IV antibiotics. Hypertension Initially, elevated BP at this time, stable with home medications. We will continue home medications and continue to monitor. Diabetes Mellitus, type 2, diet controlled Not necessary to do accucheks at this time, unless serum glucose is consistently elevated. We will continue to monitor DVT Prophylaxis: Lovenox GI prophylaxis: None Diet: Heart healthy/Diabetic Disposition: Pending cultures.
--- NOTE | 2018-10-09 19:38 | PN ---
Subjective: The patient is feeling well. Objective: The patient is growing gram-negative rods, 2+, between 10,000 and 100,000. I have called the lab personally myself and told them to go ahead and work that up, see what is going on. The syed pabon is on meropenem 1 g q.8 hours currently. Assessment: Failed outpatient urinary tract infection. History of resistance. Plan: Continue to workup urine culture. Continue meropenem. The patient's PVR was in the 200s. Sindi pompa says she is able to empty her bladder when she stands up, so she is going to do that and then call the nurse to do a postvoid residual to see how well that is working for her. Thank you very much. AYO Voice ID: [id number] Report ID: [id number]
[2018-10-09] MEDS: DONEPEZIL HCL 5 MG TAB PO SCH (20:55)
[2018-10-10] MEDS: Meropenem 1,000 MG in NA CHLORIDE 0.9% 100 ML IV SCH ×2 (00:41→10:08)
[2018-10-10] MEDS: PANTOPRAZOLE 40MG TABLET PO SCH (06:28)
[2018-10-10 09:05] VITALS: O2SAT 97
[2018-10-10] MEDS: METOPROLOL TAR 50 MG TAB PO SCH (10:09)
[2018-10-10] MEDS ORDERED: DIPHENHYDRAMINE 25 MG TAB/CAP PO ONE (11:00)
[2018-10-10] MEDS ORDERED: SMZ./TMP. 800/160 MG TABLET PO SCH (11:00)
--- NOTE | 2018-10-10 12:46 | PN ---
Subjective: The patient is feeling well today. Objective: Patient's urine culture grew Klebsiella pneumoniae, sensitive to Bactrim, Augmentin, Leva jayson, Cipro, and meropenem. The problem is she has a lot p.o. allergies, about 10 allergies or so an d Bactrim and penicillin are one of them. However, in talking to her further, she says she does not believe she is allergic to Bactrim or Cipro. Most of these problems, she got confused when she was a t [employer] and they were given her all different types of medicines for superbug and some are causin g reactions. Nobody knew which ones were causing the reaction, but she believes she has taken Bactri m before and she did fine, so we are going to try a dose here, spoken to nurse Mirlande. We tried Bactri m 1 p.o. b.i.d. We will have Benadryl on hand standby if she has an allergic reaction to give. If s he can tolerate the Bactrim, she certainly can go home and that there is no need for PICC line. Also , we can also try ciprofloxacin if possible at another time. Assessment: Klebsiella pneumonia. The patient has multiple allergies. Currently on IV meropenem no w. Plan: Plan is to try to switch to p.o. if possible and then send her home on that for another 7 days or so, and patient is to stand and void at least once a day to make sure bladder empties. RUI/REECE Voice ID: [id number] Report ID: [id number]
[2018-10-10 14:19] VITALS: TEMP 98.4
--- NOTE | 2018-10-10 15:23 | P.SSS ---
Patient History Date of Service: 10/10/18 Reason for admission: UTI History of Present Illness: This is a 68 yr old female with PMH of diet control DM2, HTN admitted directly from Dr. Holloway for a bladder infection. Per patient and at bedside, starting 3-4 years ago, patient had a fall and major surgery for which she was in the hospital for a director long term care. Ever since being dischraged from there, she stattes that she picked up a "super bug" and she has been having intermittent bladder infections since then. This time around, for the past 2-3 days, she has been having increased urinary frequency and bladder spasms. She went to see Dr. Holloway and states testing shows something concerning for another bladder infection. Due to her history of multiple infections and multiple antibiotic treatment courses, she was admitted for potential ESBL urinary infection. At the time of my exam, she was Alert, hemodynamically stable, in no acute distress. Allergies amoxicillin [From Augmentin] Allergy (Verified 10/08/18 16:25) Nausea/Vomiting ciprofloxacin Allergy (Verified 10/08/18 16:25) Rash clavulanic acid [From Augmentin] Allergy (Verified 10/08/18 16:25) Nausea/Vomiting clindamycin Allergy (Verified 10/08/18 16:25) Rash digoxin [From Lanoxin] Allergy (Verified 10/08/18 16:25) Rash doxycycline Allergy (Verified 10/08/18 16:25) Rash nitrofurantoin [From Macrobid] Allergy (Verified 10/08/18 16:25) Shortness of breath sulfamethoxazole Allergy (Verified 10/08/18 16:25) Hives trimethoprim [From Bactrim] Allergy (Verified 10/08/18 16:25) Hives vancomycin Allergy (Verified 10/08/18 16:25) Hives witch brit Allergy (Verified 10/08/18 16:25) Rash Home medications list reviewed: Yes Home Medications: Cyanocobalamin (Vitamin B-12) [Vitamin B12] 1 tab PO DAILY 10/08/18 Donepezil HCl 10 mg PO BEDTIME 10/08/18 Lansoprazole 1 cap PO DAILY 10/08/18 Magnesium Oxide [Mag 0X*] 1 tab PO DAILY 10/08/18 Metoprolol Tartrate [Lopressor*] 50 mg PO DAILY 10/08/18 Multivitamin/Iron/Folic Acid [Centrum Adults Tablet] 1 tab PO DAILY 10/08/18 diazePAM [Diazepam] 2 mg PO TID PRN 10/08/18 - Past Medical/Surgical History Has patient received pneumonia vaccine in the past: Yes Diabetic: Yes -: Hypertension -: Diabetes Mellitus, type 2 -: Peripheral neuralgia -: Tremors -: bladder surgery -: cysto/dilation -: appendectomy -: arthroscopic knee, bilateral foot, left hip -: total hysterectomy - Social History Smoking Status: Former smoker Alcohol use: No CD- Drugs: No Caffeine use: Yes Review of Systems 10-point ROS is otherwise unremarkable Physical Examination - Vital Signs Temperature: 98.4 F Blood Pressure: 166/73 Pulse: 55 Respirations: 18 Pulse Ox (%): 96 - Physical Exam General: Alert, In no apparent distress, Oriented x3 HEENT: Atraumatic, PERRLA, Mucous membr. moist/pink, EOMI, Sclerae nonicteric Neck: Supple, 2+ carotid pulse no bruit, No LAD, Without JVD or thyroid abnormality Respiratory: Clear to auscultation bilaterally, Normal air movement Cardiovascular: Regular rate/rhythm, Normal S1 S2 Gastrointestinal: Normal bowel sounds, No tenderness Musculoskeletal: No tenderness Integumentary: No rashes Neurological: Normal gait, Normal speech, Normal strength at 5/5 x4 extr, Normal tone, Normal affect Lymphatics: No axilla or inguinal lymphadenopathy - Studies Microbiology Data (last 24 hrs): 10/08/18 12:39 Clean Catch Urine [place] Count - Final BETWEEN 10,000 & 100,000 CFU/ML 10/08/18 12:39 Clean Catch Urine - Final Klebsiella Pneumoniae - Diagnosis (Problem(s)) (1) Urinary tract infection Current Visit: Yes Status: Acute Qualifiers: Urinary tract infection type: acute cystitis Hematuria presence: without hematuria Qualified Code(s): N30.00 - Acute cystitis without hematuria (2) Diabetes mellitus Current Visit: Yes Status: Acute Qualifiers: Diabetes mellitus type: type 2 Diabetes mellitus director long term care insulin use: without director long term care use Diabetes mellitus complication status: without complication Qualified Code(s): E11.9 - Type 2 diabetes mellitus without complications (3) Hypertension Current Visit: Yes Status: Acute Qualifiers: Hypertension type: essential hypertension Qualified Code(s): I10 - Essential (primary) hypertension (4) Peripheral neuralgia Current Visit: No Status: Chronic Treatment Summary: Patient was admitted as patient with multiple drug resistant UTIs and antibiotic treatments, therefor concerns for ESBL UTI. Patient was symptomatic. She was admitted from Dr. Holloway's office. She was started on IV merem. Cultures did grow Klebsiella pneumonia sensitive to bactrim. Per patient 's chart, she has multiple allergies to antibiotics, but she and at bedside stated that they were not really sure what antibiotics she was allergic to as in prior admissions, she recieved multiple antibioitcs prior to adverse reaction. She was given a trial of bactrim here. She tolerated well without any reactions. She was then discharged home on PO bactrim DS BID x 7 days. Her diagnosis/treatment plan was discussed with patient. All questions were answered and she verbalized understanding. She was then discharged home in a safe and stable manner. She otherwise remained stable throughout the stay. - Disposition Discharge Date: 10/10/18 Disposition: ROUTINE DISCHARGE Consultations: Urology, Dr. Holloway Patient Discharge Instructions: Please follow up with your primary care physician in 2-3 days. New medication: Bactrim, antibioitc for your urinary tract infection. Please follow up with Dr. Holloway in 2 weeks. Please return to the Emergency room for worsening symtpoms. Diet: ADA Activity: Ad german Time Spent Managing Pts Care (In Minutes): 55
[2018-10-10 17:34] VITALS: BP 146/87
== END 2018-10-10 18:20 | disposition home or self-care (01) ==
LOC: 2ND 11:19 → INTOOBSV 11:19
PROVIDERS: ADMIT Family Medicine; ATTEND Family Medicine
DX: N39.0 Urinary tract infection, site not specified (principal); E11.9 Type 2 diabetes mellitus without complications; I10 Essential (primary) hypertension; M79.2 Neuralgia and neuritis, unspecified; R25.1 Tremor, unspecified; N32.89 Other specified disorders of bladder; Z16.20 Resistance to unspecified antibiotic; Z88.0 Allergy status to penicillin; Z88.1 Allergy status to other antibiotic agents; Z88.2 Allergy status to sulfonamides; Z88.3 Allergy status to other anti-infective agents; Z88.8 Allergy status to other drugs, medicaments and biological substances; Z86.19 Personal history of other infectious and parasitic diseases; Z87.891 Personal history of nicotine dependence; Z90.49 Acquired absence of other specified parts of digestive tract; Z90.710 Acquired absence of both cervix and uterus; Z91.048 Other nonmedicinal substance allergy status
CPT/HCPCS: 87088; 85025; 87086; 80048 ×2; 36415 ×2; 83735; 84100; 87077; 87186; G0379; G0378; 81003; 81015

== ENCOUNTER 2018-10-22 10:01 | Emergency (ER) | payer OTHER ==
--- OUTSIDE RECORDS SUMMARY | 2018-10-22 10:07 | XMS REPORT | Clinical Summary ---
:1950 Author Organization [facility] Address [address] [place] [address] Care Team Providers Name Role Phone Duran [...] Lower abdominal pain; Diarrhea, unspecified type after 10/21/2017 Family History Medical History Relation Name Comments [...] Taken Blood Pressure 131/80 07/08/2018 11:37 AM MEASUREMENT ADVISOR Pulse 102 07/08/2018 11:37 AM MEASUREMENT ADVISOR Temperature 36.7 C (98.1 F) 06/06/2018 2:00 PM MEASUREMENT ADVISOR Respiratory Rate 19 06/06/2018 2:00 PM MEASUREMENT ADVISOR Oxygen Saturation 94% 06/06/2018 2:00 PM MEASUREMENT ADVISOR Inhaled Oxygen Concentration - - Weight 68.2 kg (150 lb 5 oz) 06/06/2018 9:55 AM MEASUREMENT ADVISOR Height 182.9 cm (6') 06/06/2018 9:55 AM MEASUREMENT ADVISOR Body Mass Index 20.39 06/06/2018 9:55 AM MEASUREMENT ADVISOR Plan of Treatment Health Maintenance Due Date Last Done Comments BREAST CANCER SCREENING 1998 COLON CANCER SCREENING 1998 SHINGLES VACCINES (#1) 1998 65+ PNEUMOCOCCAL VACCINE (1 of 2 - PCV13) 2013 PNEUMOCOCCAL POLYSACCHARIDE VACCINE AGE 65 AND OVER 2013 INFLUENZA VACCINE 01/15/2019 Procedures Procedure Name Priority Date/Time Associated Comments Diagnosis URINE CULTURE Routine 06/25/2018 10:39 Frequent UTI Results for this AM MEASUREMENT ADVISOR procedure are in the results section. [id number] Routine 06/25/2018 9:24 Frequent UTI Results for this AM MEASUREMENT ADVISOR procedure are in the results section. POC URINALYSIS Routine 06/25/2018 9:24 Frequent UTI Results for this DIPSTICK AM MEASUREMENT ADVISOR procedure are in the results section. SURGICAL PATHOLOGY Routine 06/06/2018 3:36 Results for this REQUEST PM MEASUREMENT ADVISOR procedure are in the results section. CYTOLOGY Routine 06/06/2018 1:23 Results for this (NON-GYNECOLOGICAL) PM MEASUREMENT ADVISOR procedure are in REQUEST the results section. FL CYSTOGRAM MINIMUM Routine 06/06/2018 12:50 Results for this 3 VW PM MEASUREMENT ADVISOR procedure are in the results section. POC GLUCOSE Routine 06/06/2018 12:48 Results for this PM MEASUREMENT ADVISOR procedure are in the results section. CA AN ELECTIVE Routine 06/06/2018 11:53 SUPRAGLOTTIC AIRWAY AM MEASUREMENT ADVISOR Procedure Note - Rebecca Arshad CRNA - 06/06/2018 11:53 AM MEASUREMENT ADVISOR ANESTHESIA INTUBATION Performed by: Rebecca Arshad CRNA Authorized by: Zack Puga MD Location: OR Urgency: Elective Difficult Airway: No Anesthesiologist: Raymundo Mccall DO Resident/RURAL ELECTRIFICATION ENGINEER/AA: Rebecca Arshad CRNA Performed by: resident/RURAL ELECTRIFICATION ENGINEER/AA Preoxygenated with 100% O2: Yes Final Airway Type: Supraglottic airway Final LMA: Ambu LMA Size: 4 Number of Attempts at Approach: 1 CYSTO, WITH BLADDER BIOPSY 06/06/2018 11:00 AM MEASUREMENT ADVISOR Recurrent UTI Special Needs REQ 1100 START POC GLUCOSE Routine 06/06/2018 10:26 AM Results for this MEASUREMENT ADVISOR procedure are in the results section. URINE CULTURE Routine 05/27/2018 11:03 AM Recurrent UTI Results for this MEASUREMENT ADVISOR procedure are in the results section. POC URINALYSIS Routine 05/27/2018 10:20 AM Recurrent UTI Results for this DIPSTICK MEASUREMENT ADVISOR procedure are in the results section. after 10/21/2017 Results Urine culture (06/25/2018 10:39 AM MEASUREMENT ADVISOR)Only the most recent of2 resultswithin the time period is included. Urine culture SEE NOTE [facility] Comment: CULTURE, URINE, ROUTINE MICRO NUMBER:[id number] TEST STATUS: FINAL SPECIMEN SOURCE: URINE SPECIMEN QUALITY:ADEQUATE RESULT:Upon further incubation: Three or more organisms present, each greater than 10,000 cu/mL. May represent normal leandro contamination from external genitalia. No further testing is required. Specimen Urine Resulting Agency Comment Performing Organization Information: Site ID: [id number] Name: [facility] Address: [address] [place] [id number] Director: Karley Pete Performing Organization Address City/State/Zipcode Phone Number [place] [address] POC BLADDER SCAN/PVR (06/25/2018 9:24 AM MEASUREMENT ADVISOR) Volume 69mlComment: pvr Specimen Urine POC urinalysis dipstick (06/25/2018 9:24 AM MEASUREMENT ADVISOR)Only the most recent of2 resultswithin the time [...] Urine Surgical pathology request (06/06/2018 3:36 PM MEASUREMENT ADVISOR) [facility] DEPARTMENT OF PATHOLOGY AND GENOMIC MEDICINE Surgical pathology report See link below for PDF [facility] DEPARTMENT OF Lab Report PATHOLOGY AND GENOMIC MEDICINE Result status This is Final Report [facility] DEPARTMENT OF for [id number] PATHOLOGY AND GENOMIC MEDICINE Performing Organization Address [facility] Phone Number [facility] DEPARTMENT OF PATHOLOGY AND [address] [place] [phone] GENOMIC MEDICINE Cytology (non-gynecological) request (06/06/2018 1:23 PM MEASUREMENT ADVISOR) [facility] DEPARTMENT OF PATHOLOGY AND GENOMIC MEDICINE Cytology See link below for PDF [facility] DEPARTMENT OF (non-gynecological) report Lab Report PATHOLOGY AND GENOMIC MEDICINE Result status This is Final Report [facility] DEPARTMENT OF for [id number] PATHOLOGY AND GENOMIC MEDICINE Performing Organization Address [facility] Phone Number [facility] DEPARTMENT PATHOLOGY AND [address] [place] [phone] [facility] MEDICINE [place] Cystogram Minimun 3 Views (06/06/2018 12:50 PM MEASUREMENT ADVISOR) Narrative Performed At IMPRESSION:C-arm Fluoroscopy under 1 hour was provided in the OR for RADIANT the referring physician.A radiologist was not present during the procedure. Refer to the Operative report issued by the performing provider for procedure details. Procedure Note Interface, Radiology Results Incoming - 06/06/2018 4:34 PM MEASUREMENT ADVISOR IMPRESSION: C-arm Fluoroscopy under 1 hour was provided in the OR for the referring physician. A radiologist was not present during the procedure. Refer to the Operative report issued by the performing provider for procedure details. Performing Organization Address City/[facility] Phone Number [facility] [address] [place] [phone] POC glucose (06/06/2018 12:48 PM MEASUREMENT ADVISOR)Only the most recent of2 resultswithin the time period is included. POC glucose 115 (H) 65 - 99 mg/dL [facility] Comment: Meter ID: [id number] Crop Consultant: Concetta Ortega Performing Organization Address City/State/Zipcode Phone Number [facility] DEPARTMENT OF PATHOLOGY AND [address] [place] [address] GENOMIC MEDICINE [address] [address] after 10/21/2017 Insurance Payer Benefit Plan / Group Subscriber ID Type Phone Address MEDICARE MEDICARE PART A AND B xxxxxxxxxx Medicare [place], [place] MEDICARE MEDICARE PART A AND B xxxxxxxxxx Medicare [place] [employer] xxxxxx-xx Commercial Advance Directives Patient has advance care planning documents on file. For more information, please contact:[address] [address]
--- OUTSIDE RECORDS SUMMARY | 2018-10-22 10:08 | XMS REPORT | Continuity of Care Document ---
:1950 Author Organization Interface Problems Problem Status Onset Classification Date Comments Source Date Reported Urinary tract 12/17/2017 [facility] infection, site 8 not specified Escherichia Active Problem 12/17/2017 Problem [facility] coli<sup>1, 8 added by 2</sup> Discern Expert. 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 coli] as the cause of diseases classified elsewhere Essential 12/17/2017 [facility] hypertension Body mass index 12/17/2017 [facility] 23.0-23.9, adult Personal history 12/17/2017 [facility] of urinary infections TRANSIENT Active [facility] CEREBRAL [place] ISCHEMIC ATTACK, UNSP URINARY TRACT Active [facility] INFECTION, SITE [place] NOT SPECIF Medications Medication Details Route Status Patient Ordering Order Source Instructions Provider Date Norvasc 10 mg, 2 tab, No Longer Route: PO, Active 018 [place] Drug form: TAB, Daily, Dosing Weight 76.96, kg, Start date: 09/09/17 9:00:00 CDT, Duration: 30 day, Stop date: 10/08/17 9:00:00 CDTNotes: (Same as: Norvasc) amLODIPine 5 mg, 1 tab, Inactive Route: PO, 018 [place] Drug form: TAB, ONCE, Start date: 09/08/17 [...] mg, 2 tab, Inactive Route: PO, 018 [place] Drug form: TAB, ONCE, Dosing Weight 76.96, kg, PRN Agitation, Priority: NOW, Start date: 09/08/17 0:32:00 CDTNotes: (Same as: Haldol) Norvasc 5 mg, 1 tab, No Longer Route: PO, Active 018 [place] Drug form: TAB, Daily, Dosing Weight 76.96, kg, Priority: NOW, Start date: 09/07/17 13:01:00 CDT, Duration: 30 day, Stop date: 10/07/17 9:00:00 CDTNotes: (Same as: Norvasc) Invanz 1 gm, Route: No Longer IVPB, [id number], Active 018 [place] Dosing Weight 76.96, kg, Start date: 09/06/17 12:00:00 CDT, Duration: 14 day, Stop date: 09/19/17 12:00:00 CDT, ABX Indication: Urinary Tract InfectionNotes : (Same as: INVanz) Refrigerate. NOT COMPATIBLE WITH D5W. Stable in refrigerator for 24 hours MEDICATION WASTE Product Size: 1000 mg Product Wasted: ___ mg meropenem + 500 mg, Route: Inactive MH Sodium IVPB, ABXQ8H, 018 [place] Chloride 0.9% Dosing Weight IV 100 mL [...] No Longer tartrate Route: PO, Active 018 [place] Drug form: TAB, Q12H, Dosing Weight 76.96, kg, Start date: 09/03/17 21:00:00 CDT, Duration: 30 day, Stop date: 10/03/17 9:00:00 CDTNotes: (Same as: Lopressor) meropenem + 500 mg, Route: No Longer Sodium IVPB, ABXQ8H, Active 018 [place] Chloride 0.9% Dosing Weight IV 100 mL 76.96, kg, CrCL=30 -49 ml/min, Extended infusion, infuse over 3 hours, Start date: 09/03/17 20:00:00 CDT, Duration: 10 day, Stop date: 09/13/17 12:00:00 CDT, ABX Indication: Urinary Tract InfectionNotes : Same as [place] MEDICATION WASTE Product Size: 500 mg Product Wasted: ___ mg Enoxaparin 40 mg, 0.4 mL, No Longer Route: SUB-Q, Active 018 [place] Drug form: INJ, [id number], Dosing Weight 76.96, kg, Start date: 09/03/17 17:00:00 CDT, Stop date: 10/02/17 17:00:00 CDTNotes: (Same as: Lovenox) meropenem 500 mg, Route: Inactive IVPB, ABXQ8H, 018 [place] Dosing Weight 76.96, kg, CrCL=30 -49 ml/min, [...] 2 MH 0.9% IVP, Drug Active Marcellus [place] Form: INJ, Dosing Weight 76.96, kg, PRN, PRN Line Flush, Start date: 09/03/17 16:29:00 CDT, Duration: 30 day, Stop date: 10/03/17 16:28:00 CDTNotes: (Same as: BD Posiflush) Sodium 1,000 mL, No Longer MH Chloride 0.9% Rate: 100 Active 018 [place] IV 1,000 mL ml/hr, Infuse over: 10 hr, Route: IV, Dosing Weight 76.96 kg, Total Volume: 1,000, Start date: 09/03/17 16:29:00 CDT, Duration: 30 day, Stop date: 10/03/17 16:28:00 CDT, 1.98, m2 diazepam 2 mg 2 mg=1 tab, Active MH oral tablet PO, TID, # 30 018 [place] tab, 0 Refill(s) metoprolol 50 mg=1 tab, Active tartrate 50 mg PO, BID, # 180 018 [place] oral tablet tab, 0 Refill(s) Docusate 100 mg=1 cap, Active Sodium 100 MG PO, BID, # 60 018 [place] Oral Capsule cap, 0 [Colace] Refill(s) lisinopril 5 5 mg=1 tab, Active MH mg oral tablet PO, BID, # 30 018 [place] tab, 0 Refill(s) potassium See Active chloride 20 Instructions, 018 [place] mEq oral 0.5 tab PO tablet, BID, 0 extended Refill(s) release 24 HR 5 mg=1 tab, Active Glipizide 5 MG PO, Breakfast, 018 [place] Extended # 30 tab, 1 Release Tablet Refill(s) Miralax 17 gm, PO, Active Daily, 0 018 [place] Refill(s) Mag-Ox 400 400 mg=1 tab, Active MH PO, BID, # 20 018 [place] tab, 0 Refill(s) donepezil 5 mg 5 mg=1 tab, Active MH oral tablet PO, Daily, At 018 [place] bedtime, # 30 tab, 0 Refill(s) multivitamin 1 mL=, PO, Active MH with iron Daily, 0 018 [place] Refill(s) Famotidine 20 20 mg=1 tab, Active MH MG Oral Tablet PO, BID, # 60 018 [place] tab, 0 Refill(s) Vitamin B-12 250 Active MH 250 mcg oral microgram=1 018 [place] tablet tab, PO, Daily, # 30 tab, 0 Refill(s) Allergies, Adverse Reactions, Alerts Substance Category Reaction Severity Reaction Status Date Comments Source type Reported sulfa drugs Assertion Drug Active [facility] allergy [place] ciprofloxacin Assertion Drug Active [facility] allergy [place] doxycycline Assertion Drug Active [facility] allergy [place] clindamycin Assertion Drug Active [facility] allergy [place] vancomycin Assertion Drug Active [facility] allergy [place] Augmentin Assertion Drug Active [facility] allergy [place] Levaquin Assertion Drug Active MH allergy [place] Immunizations Immunization Date Given Site Status Last Updated Comments Source Results Order Name Results Value Reference Date Interpretation Comments Source Range Chest 1 v Chest 1 v Clinical Indication: Line Placement - Chest 1 view for line placement 09/06 - [facility] for for - [place] Placement Placement DX Comparison: None DX Read by: Xavier Wilson MD Dictated Date/time: 09/06/17 15:53 FINDINGS: Single [...] angle is excluded from this examination. SL: [id number] CVC insert CVC insert Patient Name: MIHIR VASQUEZ 09/06 - [facility] non-tunnel non-tunnel /2017 - [place] age 5+ yrs age 5+ yrs : 1950; Age: 67 years Female VR VR MR: [id number] Read by: Kendrick Esposito MD Dictated Date/time: [...] per protocol prior to the procedure. 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 The wire was removed and the ports were flushed with saline. The catheter was affixed to the skin an d sterile dressings applied. Patient tolerated the procedure well without immediate complication. IMPRESSION: Successful placement of a nontunneled right IJ central catheter. SL: [id number] ANEMIA Vitamin B12 928 pg/mL 254 - 1320 09/05 MH STUDY Lvl /2017 [place] ELECTROLYTE AGAP 13.5 meq/L 10.0 - 09/05 MH S 20.0 [place] ELECTROLYTE Calcium Lvl 9.1 mg/dL 8.5 - 10.5 09/05 S [place] ELECTROLYTE CO2 24 meq/L 24 - 32 09/05 S /2017 [place] ELECTROLYTE Chloride Lvl 107 meq/L 95 - 109 09/05 S [place] ELECTROLYTE Creatinine 1.23 mg/dL 0.50 - 09/05 MH S Lvl 1.40 [place] ELECTROLYTE Sodium Lvl 140 meq/L 135 - 145 09/05 S [place] ELECTROLYTE Potassium 4.5 meq/L 3.5 - 5.1 09/05 S Lvl /2017 [place] ELECTROLYTE Glucose Lvl 161 mg/dL 70 - 99 09/05 MH S [place] ELECTROLYTE BUN 14 mg/dL - 09/05 S /2017 [place] ELECTROLYTE eGFR 45 09/05 Result Comment: The [...] is not recommended in the following populations: [address] Individuals with unstable creatinine concentrations, including [...] meq/L 10.0 - 09/04 MH S 20.0 [place] ELECTROLYTE eGFR 36 09/04 Result Comment: The [...] is not recommended in the following populations: [address] Individuals with unstable creatinine concentrations, including [...] BUN 19 mg/dL 7 - 09/04 S [place] ELECTROLYTE Creatinine 1.47 mg/dL 0.50 - 09/04 MH S Lvl 1.40 [place] ELECTROLYTE Glucose Lvl 148 mg/dL 70 - 99 09/04 [place] ELECTROLYTE Calcium Lvl 8.5 mg/dL 8.5 - 10.5 09/04 [place] ELECTROLYTE CO2 28 meq/L 24 - 32 09/04 [place] ELECTROLYTE Potassium 3.5 meq/L 3.5 - 5.1 09/04 S Lvl [place] ELECTROLYTE Chloride Lvl 103 meq/L 95 - 109 09/04 [place] ELECTROLYTE Sodium Lvl 138 meq/L 135 - 145 09/04 [place] HEMATOLOGY MPV 7.9 fL 7.4 - 10.4 09/04 [place] HEMATOLOGY MCH 30.5 pg 27.0 - 09/04 MH 31.0 [place] HEMATOLOGY Hct 25.6 % 36.0 - 09/04 MH 48.0 [place] HEMATOLOGY RBC 2.87 M/CMM 4.20 - 09/04 MH 5.40 [place] HEMATOLOGY Hgb 8.7 g/dL 12.0 - 09/04 MH 16.0 [place] HEMATOLOGY MCV 89.0 fL 80.0 - 09/04 MH 98.0 [place] HEMATOLOGY Platelet 205 K/CMM 133 - 450 09/04 [place] HEMATOLOGY MCHC 34.2 g/dL 32.0 - 09/04 36.0 [place] HEMATOLOGY RDW 13.5 % 11.5 - 09/04 MH 14.5 [place] HEMATOLOGY WBC 9.2 K/CMM 3.7 - 10.4 09/04 [place] CEFAZOLIN:S Culture: 10,000 - 50,000 CFU/mL Escherichia coli 09/03 [facility]:PT:ISOL Urine [place] ATE:ORDQN:M This Organism Produces An Extended Spectrum IC Beta Lactamase (ESBL). Multi-drug Resistant Organism CEFAZOLIN:S Escherichia [place]her[place] 09/03 [facility]:PT:ISOL coli a coli [place] ATE:ORDQN:M IC URINE AND UA <=1.0 0.1 - 1.0 09/03 STOOL Urobilinogen mg/dL [place] URINE AND UA Sq Epi None Seen 09/03 STOOL [place] URINE AND UA Color Yellow Yellow 09/03 [place] *NA* (09/03/17 6:38 PM) URINE AND UA pH 6.0 5.0 - 8.0 09/03 [place] URINE AND UA Spec Grav 1.008 <=1.030 09/03 [place] URINE AND UA Turbidity Marked Clear 09/03 [place] *ABN* (09/03/17 6:38 PM) URINE AND UA Glucose Negative Negative 09/03 STOOL mg/dL mg/dL [place] URINE AND UA Protein 100 mg/dL Negative 09/03 STOOL mg/dL [place] URINE AND UA Blood Small Negative 09/03 [place] *ABN* (09/03/17 6:38 PM) URINE AND UA Bili Negative Negative 09/03 [place] *NA* (09/03/17 6:38 PM) URINE AND UA Ketones Negative Negative 09/03 [place] mg/dL mg/dL [place] URINE AND UA Leuk Est Large Negative 09/03 [place] *ABN* (09/03/17 6:38 PM) URINE AND UA Nitrite Negative Negative 09/03 [place] (09/03/17 6:38 PM) URINE AND UA Bacteria Many /HPF None Seen 09/03 STOOL /HPF [place] URINE AND UA WBC null 0 - 5 09/03 [place] Brain wo Brain wo EXAM: MRI BRAIN WITHOUT CONTRAST 09/03 [facility] contrast contrast - [place] MRI DATE: 09/03/2017 4:27 PM CDT Read [...] MRI BRAIN WITH AND WITHOUT CONTRAST 03/04 [facility] contrast contrast MRI /2016 - [place] MRI DATE: 03/04/2017 11:47 AM CDT Read [...] Mucosal disease of the sphenoid sinuses. SL: [id number] Vital Signs Vital Sign Value Date Comments Source Systolic (mm Hg) 134 09/10/2017 [facility] Diastolic (mm Hg) 75 09/10/2017 [facility] Respitory Rate 18 09/10/2017 [facility] Heart Rate 72 09/10/2017 [facility] Temperature Oral (F) 98.2 F 09/10/2017 [facility] Temperature Oral (F) 98.4 F 09/10/2017 [facility] Heart Rate 67 09/10/2017 [facility] Respitory Rate 18 09/10/2017 [facility] Systolic (mm Hg) 137 09/10/2017 [facility] Diastolic (mm Hg) 72 09/10/2017 [facility] Temperature Oral (F) 98.2 F 09/10/2017 [facility] Heart Rate 76 09/10/2017 [facility] Respitory Rate 18 09/10/2017 [facility] Systolic (mm Hg) 154 09/10/2017 [facility] Diastolic (mm Hg) 81 09/10/2017 [facility] Height 182.88 cm 09/03/2017 [facility] BMI Calculated 23.01 09/03/2017 [facility] Weight 76.96 09/03/2017 [facility] Encounters Location Location Encounter Encounter Reason Attending ADM DC Status Source Details Type Number For Provider Date Date Visit [facility] Outpt Diag [id number] Odalis 03/04 03/05 [facility] Christine /2016 [place] [facility] Inpatient [id number] [place] 09/03 09/10 Vincent Carbajal Jr /2017 [facility] Procedures Procedure Code Date Perfomer Comments Source Hip joint [id number] Left [facility] operations<sup>1</s up> Neck [id number] "Screws and [facility] repair<sup>2</sup> pins in, I think it was broken, neck" Shoulder [id number] Left sided - [facility] repair<sup>3</sup> two operations Tonsillectomy [id number] [facility]
--- OUTSIDE RECORDS SUMMARY | 2018-10-22 10:09 | XMS REPORT ---
:1950 [facility] [address] [place] [address] Dr. Rivas [address] [place] [id number] Care Team Providers Name Role Phone Unavailable Unavailable Unavailable Problems This patient has no known problems. Allergies, Adverse Reactions, Alerts This patient has no known allergies or adverse reactions. Medications This patient has no known medications.
[2018-10-22 11:04] LABS: Absolute Lymphocytes (CBC) 1.8 K/uL (0.7-4.9); Absolute Monocytes 0.5 K/uL (0.1-1.3); Basophils % 0.7 % (0-1.3); Eosinophils % 1.2 % (0-4.4); Hematocrit 36.2 % (36.0-45.0); Lymphocytes % 16.7 % (15.3-44.8); MPV 8.5 fL (7.6-11.3); Monocytes % 5.1 % (3.3-12.3)
[2018-10-22] MEDS ORDERED: LIDOCAINE 1% MPF 5 ML VIAL ONE (11:24)
[2018-10-22 11:28] LABS: Albumin 4.4 g/dL (3.4-5.0); Bilirubin Direct 0.1 mg/dL (0-0.2); Bilirubin Total 0.6 mg/dL (0.2-1.0); Potassium 3.9 mmol/L (3.5-5.1); Protein, Total 8.5 g/dL (6.4-8.2)
[2018-10-22] MEDS ORDERED: NA CHLORIDE 0.9% 500 ML ONE (12:13)
--- NOTE | 2018-10-22 12:17 | ER ---
Nurse's Notes [facility] Name: Josefina Pickering Age: 68 yrs Sex: Female : 1950 Arrival Date: 10/22/2018 Time: 10:04 Bed 4 Private MD: Duran Uribe S Diagnosis: Cutaneous abscess of chest wall Presentation: 10/22 10:45 Presenting complaint: Patient states: c/o bump to chest for years, since Saturday is ch getting worse. was seen last week for a uti here, admitted. Dr. Holloway told her to come to the ER for the bump. as well, pt states she is having a lot of normal stool, has hx of rectal prolapse, and is concerned. having increase in rectal pain, and stinging. 10:55 Transition of care: patient was not received from another setting of care. 10:55 Method Of Arrival: Ambulatory 11:02 Onset of symptoms was October 18, 2018. Risk Assessment: Do you want to hurt yourself or ch someone else? Patient reports no desire to harm self or others. Initial Sepsis Screen: Does the patient meet any 2 criteria? No. Patient's initial sepsis screen is negative. Does the patient have a suspected source of infection? No. Patient's initial sepsis screen is negative. Care prior to arrival: None. 11:02 Acuity: MOISE 3 ch Triage Assessment: 11:09 General: Appears in no apparent distress. uncomfortable, Behavior is anxious, restless. ch Pain: Complains of pain in mid-sternal area, perineum and anus Pain currently is 7 out of 10 on a pain scale. Pain began gradually. Neuro: Level of Consciousness is awake, alert, obeys commands, Oriented to person, place, time, situation, [employer] Former Supervisor are equal bilaterally Moves all extremities. Weakness pt states she has a central tremor. Respiratory: Airway is patent Respiratory effort is even, unlabored. GI: Abdomen is round non-distended, Bowel sounds present X 4 quads. Abd is soft and non tender X 4 quads. Reports diarrhea, rectal pain. Derm: Skin is pale. Musculoskeletal: Capillary refill < 3 seconds, in bilateral fingers. Historical: - Allergies: 11:09 Digoxin; ch 11:09 Doxycycline; ch 11:09 Clindamycin; ch 11:09 CLAVULANIC ACID; ch 11:09 sulfamethoxazole-trimethoprim; ch 11:09 Nitrofurantoin Macrocrystal; ch 11:09 TRIMETHOPRIM; ch 11:09 Ciprofloxacin; ch 11:09 Amoxicillin; ch 11:09 VANCOMYCIN AND DERIVATIVES; ch 11:09 Witch Joy; ch - Home Meds: 11:09 Diazepam Oral [Active]; donepezil oral oral [Active]; lansoprazole oral oral [Active]; ch Metoprolol Tartrate Oral [Active]; cyanocobalamin (vitamin B-12) oral oral [Active]; magnesium oral oral [Active]; multivitamin oral oral [Active]; Sulfamylon Topical [Active]; Oxybutynin Chloride Oral [Active]; - PMHx: 11:55 UTI; Diabetes - NIDDM; Hypertension; fall; neuropathy; central tremor; ch - Immunization history:: Adult Immunizations up to date, Flu vaccine is up to date. - Social history:: Smoking status: Patient/guardian denies using tobacco, Patient/guardian denies using alcohol, street drugs. - Ebola Screening: : Patient negative for fever greater than or equal to 101.5 degrees Fahrenheit, and additional compatible Ebola Virus Disease symptoms Patient denies exposure to infectious person Patient denies travel to an Ebola-affected area in the 21 days before illness onset No symptoms or risks identified at this time. Screenin:15 Abuse screen: Denies threats or abuse. Denies injuries from another. Nutritional ch screening: No deficits noted. Tuberculosis screening: No symptoms or risk factors identified. Fall Risk Fall in past 12 months (25 points). Secondary diagnosis (15 points) IV access (20 points). Ambulatory Aid- Crutches/Cane/Walker (15 pts). Gait- Weak (10 pts.). Mental Status- Oriented to own ability (0 pts). Total Vasques Fall Scale indicates High Risk Score (45 or more points). Fall prevention measures have been instituted. Side Rails Up X 2 Placed Close to Nursing Station Frequent Obs/Assessments Occuring Family Present and informed to notify staff if the need to leave the bedside As available patient and family educated on Fall Prevention Program and Strategies. Assessment: 11:15 Reassessment: Patient appears in no apparent distress at this time. Patient and/or ch family updated on plan of care and expected duration. Pain level reassessed. 11:16 Reassessment: pt is up and down to commode for urination and defecation, multiple times.ch 12:07 Reassessment: Patient appears in no apparent distress at this time. Patient and/or ch family updated on plan of care and expected duration. Pain level reassessed. Patient is alert, oriented x 3, equal unlabored respirations, skin warm/dry/pink. pt oob to bsc multiple times, with assisstance. Patient states feeling better. Patient states symptoms have improved. 12:30 Reassessment: DISCHARGE DELAYED DUE TO PT BEING ON COMMODE AGAIN. Vital Signs: 10:45 BP 173 / 96; Pulse 75; Resp 22; Temp 98.1; Pulse Ox 97% on R/A; Pain 7/10; ch 12:07 BP 167 / 83; Pulse 71; Resp 18; Temp 97.6; Pulse Ox 97% on R/A; Pain 4/10; ch ED Course: 10:04 Patient arrived in ED. as 10:04 Duran Uribe MD is Private Physician. as 10:10 Diego Brewster PA is PHCP. [facility] 10:10 Jose G German MD is Attending Physician. jmm 10:40 Michelle Suarez RN is Primary Nurse. ch 10:54 Patient has correct armband on for positive identification. Placed in gown. Bed in low ch position. Call light in reach. Side rails up X 1. Adult w/ patient. Pulse ox on. NIBP on. Warm blanket given. 10:54 Inserted saline lock: 20 gauge in left forearm, using aseptic technique. Blood ch collected. 10:55 Basic Metabolic Panel Sent. ch 10:55 CBC with Diff Sent. ch 10:55 Creatinine for Radiology Sent. ch 10:55 Hepatic Function Sent. ch 10:55 Lipase Sent. ch 11:04 Triage completed. ch 11:14 Patient placed in an exam room, on a stretcher. ch 12:07 Assist provider with I \T\ D: of an abscess on center of chest. Wound packed. Dressing ch with 4X4s, tape Patient tolerated well. 12:16 Atilio Cage MD is Referral Physician. [facility] 12:16 Mark Reyes MD is Referral Physician. jm 12:20 IV discontinued, intact, bleeding controlled, No redness/swelling at site. Pressure ch dressing applied. Administered Medications: 11:40 Drug: Lidocaine (1 %) 5 ml {Note: placed at bedside per orders .} Volume: 5 ml; Route: ch Infiltration; Site: affected area; 16:23 Follow up: Response: No adverse reaction 11:40 Drug: NS 0.9% 500 ml Route: IV; Rate: bolus; Site: left forearm; ch 12:00 Follow up: IV Status: Completed infusion; IV Intake: 500ml ch Intake: 12:00 IV: 500ml; Total: 500ml. ch Outcome: 12:17 Discharge ordered by . antonio 12:40 Discharged to home via wheelchair, with family. 12:40 Condition: improved 12:40 Discharge instructions given to patient, friend, Instructed on discharge instructions, follow up and referral plans. medication usage, wound care, Demonstrated understanding of instructions, follow-up care, medications, wound care, Prescriptions given X 3. 12:48 Patient left the ED. ss Signatures: Michelle Suarez RN RN Diego Brewster PA PA jmm Martinez, Amelia as Smirch, Shelby, RN RN ss Corrections: (The following items were deleted from the chart) 11:04 10:55 Presenting complaint: Patient states: c/o bump to chest for years, since Saturday ch is getting worse. was seen last week for a uti here, admitted. Dr. Holloway told her to come to the ER for the bump. as well, pt states she is having a lot of normal stool, has hx of rectal prolapse, and is concerned. having increase in rectal pain, and stinging ch
--- NOTE | 2018-10-22 12:17 | EDPHYS ---
Physician Documentation [facility] Name: Josefina Pickering Age: 68 yrs Sex: Female : 1950 Arrival Date: 10/22/2018 Time: 10:04 Bed 4 Private MD: Duran Uribe S ED Physician Jose G German HPI: 10/22 10:33 This 68 yrs old Female presents to ER via Unassigned with complaints of jmm Abscess. 10:33 the patient presents with a swollen area of the chest. Onset: The symptoms/episode jmm began/occurred gradually, 3 day(s) ago. Possible cause(s): unknown. This is a 68 year old female with a history of dementia that presents to the ED with complaints of swelling to her chest. This began approx 3 days ago. Patient states she has had a small area which she states looked like an insect bite chronically. Patient was put on levaquin yesterday and has had increased stools since PCP put patient on levaquin for abscess. Complains of stinging sensation to her rectum but denies abdominal pain. . Historical: - Allergies: 11:09 Digoxin; ch 11:09 Doxycycline; ch 11:09 Clindamycin; ch 11:09 CLAVULANIC ACID; ch 11:09 sulfamethoxazole-trimethoprim; ch 11:09 Nitrofurantoin Macrocrystal; ch 11:09 TRIMETHOPRIM; ch 11:09 Ciprofloxacin; ch 11:09 Amoxicillin; ch 11:09 VANCOMYCIN AND DERIVATIVES; ch 11:09 Witch Joy; ch - Home Meds: 11:09 Diazepam Oral [Active]; donepezil oral oral [Active]; lansoprazole oral oral [Active]; ch Metoprolol Tartrate Oral [Active]; cyanocobalamin (vitamin B-12) oral oral [Active]; magnesium oral oral [Active]; multivitamin oral oral [Active]; Sulfamylon Topical [Active]; Oxybutynin Chloride Oral [Active]; - PMHx: 11:55 UTI; Diabetes - NIDDM; Hypertension; fall; neuropathy; central tremor; ch - Immunization history:: Adult Immunizations up to date, Flu vaccine is up to date. - Social history:: Smoking status: Patient/guardian denies using tobacco, Patient/guardian denies using alcohol, street drugs. - Ebola Screening: : Patient negative for fever greater than or equal to 101.5 degrees Fahrenheit, and additional compatible Ebola Virus Disease symptoms Patient denies exposure to infectious person Patient denies travel to an Ebola-affected area in the 21 days before illness onset No symptoms or risks identified at this time. ROS: 11:52 Constitutional: Negative for fever, chills, and weight loss, Cardiovascular: Negative jmm for chest pain, palpitations, and edema, Respiratory: Negative for shortness of breath, cough, wheezing, and pleuritic chest pain. 11:52 : Positive for rectal pain. 11:52 Skin: Positive for swelling. 11:52 All other systems are negative. Exam: 11:52 Constitutional: This is a well developed, well nourished patient who is awake, alert, jmm and in no acute distress. Head/Face: atraumatic. 11:52 Cardiovascular: Regular rate and rhythm. No edema appreciated Respiratory: Normal respirations, no respiratory distress appreciated 11:52 Chest/axilla: abscess noted to the midsternal region. 11:52 Abdomen/GI: Inspection: abdomen appears normal, Bowel sounds: normal, Palpation: abdomen is soft and non-tender, in all quadrants, Rectal exam: non prolapsed, mild inflammation noted. 11:52 Back: ROM is normal. 11:52 Musculoskeletal/extremity: ROM: intact in all extremities. 11:52 Skin: Appearance: Color: normal in color, abscess noted to the midsternal region. 11:52 Neuro: Orientation: is normal, Mentation: is normal, Memory: is normal. 11:52 Psych: Behavior/mood is pleasant, cooperative, anxious. Vital Signs: 10:45 BP 173 / 96; Pulse 75; Resp 22; Temp 98.1; Pulse Ox 97% on R/A; Pain 7/10; ch 12:07 BP 167 / 83; Pulse 71; Resp 18; Temp 97.6; Pulse Ox 97% on R/A; Pain 4/10; ch Procedures: 11:55 I \T\ D: Incision and drainage was performed for an abscess of the mid-sternal area jmm Prepped with Betadine, Incised with #11 blade. Drained large amount purulent fluid. Packed with iodoform gauze, Dressing: sterile 4x4 gauze, the patient tolerated the procedure well. MDM: 10:32 Patient medically screened. [facility] 12:07 Data reviewed: vital signs, nurses notes. Counseling: I had a detailed discussion with [facility] the patient and/or guardian regarding: the historical points, exam findings, and any diagnostic results supporting the discharge/admit diagnosis, lab results, the need for outpatient follow up, to return to the emergency department if symptoms worsen or persist or if there are any questions or concerns that arise at home. ED course: Patient is alert and non toxic in appearance in the ED. Abscess drained and the patient was advised to follow up with gen surgery for reevaluation in 1 to 2 days. Abdomen soft, non tender to palpation. Patient is otherwise given strict return precautions. Patient understood and agrees with the plan of care. . 10/22 10:36 Order name: Basic Metabolic Panel; Complete Time: 11:45 [facility] 10/22 10:36 Order name: CBC with Diff; Complete Time: 11:13 [facility] 10/22 10:36 Order name: Creatinine for Radiology; Complete Time: :45 [facility] 10/22 10:36 Order name: Hepatic Function; Complete Time: 11:45 [facility] 10/22 10:36 Order name: Lipase; Complete Time: 11:45 [facility] 10/22 10:36 Order name: IV Saline Lock; Complete Time: 10:55 [facility] 10/22 10:36 Order name: Labs collected and sent; Complete Time: 10:55 [facility] Administered Medications: 11:40 Drug: Lidocaine (1 %) 5 ml {Note: placed at bedside per orders .} Volume: 5 ml; Route: ch Infiltration; Site: affected area; 16:23 Follow up: Response: No adverse reaction 11:40 Drug: NS 0.9% 500 ml Route: IV; Rate: bolus; Site: left forearm; 12:00 Follow up: IV Status: Completed infusion; IV Intake: 500ml Disposition: 10/23 06:52 Co-signature as Attending Physician, Jose G German MD I agree with the assessment and kdr plan of care. Disposition: 10/22/18 12:17 Discharged to Home. Impression: Cutaneous abscess of chest wall. - Condition is Stable. - Discharge Instructions: Skin Abscess, Incision and Drainage. - Prescriptions for Bactrim DS 800- 160 mg Oral Tablet - take 1 tablet by ORAL route every 12 hours for 10 days; 20 tablet. - Medication Reconciliation Form, Thank You Letter, Antibiotic Education, Prescription Opioid Use form. - Follow up: Atilio Cage MD; When: 2 - 3 days; Reason: Recheck today's complaints, Continuance of care, Re-evaluation by your physician. Follow up: Mark Reyes MD; When: 2 - 3 days; Reason: Recheck today's complaints, Continuance of care, Re-evaluation by your physician. Signatures: Dispatcher [employer] EDMS Michlele Suarez, RN RN Jose G German MD MD [facility] Diego Brewster PA PA [facility] Tangela Dumont RN RN ss Corrections: (The following items were deleted from the chart) 10/22 12:48 12:17 10/22/2018 12:17 Discharged to Home. Impression: Cutaneous abscess of chest wall. ss Condition is Stable. Forms are Medication Reconciliation Form, Thank You Letter, Antibiotic Education, Prescription Opioid Use. Follow up: Atilio Cage; When: 2 - 3 days; Reason: Recheck today's complaints, Continuance of care, Re-evaluation by your physician. Follow up: Mark Reyes; When: 2 - 3 days; Reason: Recheck today's complaints, Continuance of care, Re-evaluation by your physician. [facility] 16:55 10:33 This is a 68 year old female with a history of dementia that presents to the ED [facility] with complaints of swelling to her chest. This began approx 3 days ago. Patient states she has had a small area which she states looked like an insect bite chronically. Patient was put on levaquin yesterday and has had increased stools. . [facility] 17:05 12:07 ED course: Patient is alert and non toxic in appearance in the ED. Abscess [facility] drained and the patient was advised to follow up with gen surgery for reevaluation in 1 to 2 days. . [facility]
[2018-10-22 12:54] VITALS: O2SAT 97
[2018-10-22 12:55] VITALS: BP 167/83; TEMP 97.6
== END 2018-10-22 12:48 | disposition home or self-care (01) ==
LOC: ER 10:01
PROC: 0J960ZZ Drainage of Chest Subcutaneous Tissue and Fascia, Open Approach (ICD-10-PCS; principal; 2018-10-22)
DX: L02.213 Cutaneous abscess of chest wall (principal); I10 Essential (primary) hypertension; E11.9 Type 2 diabetes mellitus without complications; Z88.1 Allergy status to other antibiotic agents; Z88.2 Allergy status to sulfonamides; Z88.3 Allergy status to other anti-infective agents; Z88.8 Allergy status to other drugs, medicaments and biological substances
CPT/HCPCS: 36415; 80048; 80076; 83690; 85025; 99284

== ENCOUNTER 2019-03-17 11:37 | Emergency (ER) | payer OTHER ==
[2019-03-17 12:48] LABS: Absolute Lymphocytes (CBC) 1.8 K/uL (0.7-4.9); Basophils % 0.8 % (0-1.3); Hematocrit 35.3 % (36.0-45.0); Lymphocytes % 16.4 % (15.3-44.8); MPV 8.7 fL (7.6-11.3); RBC Red Blood Cell Count 3.98 M/uL (3.86-4.86)
[2019-03-17 12:52] LABS: Urine Amorphous Sediment 2+ /HPF (NONE SEEN); Urine Bacteria <20 /HPF (<20); Urine Culture Reflex Order REFLEXED; Urine RBC >50 /HPF (NONE SEEN)
[2019-03-17 13:01] LABS: Protime INR 1.07
[2019-03-17 13:02] LABS: Urine Appearance CLEAR; Urine Color RED
[2019-03-17 13:03] LABS: Urine Bilirubin NEGATIVE (NEG); Urine Blood 3+ (NEG); Urine Glucose NEGATIVE (NEG); Urine Microscopic Reflex NO UMIC; Urine Protein 3+ (NEG); Urine Urobilinogen 0.2 mg/dL (0.2-1.0)
[2019-03-17 13:06] LABS: Potassium 4.1 mmol/L (3.5-5.1)
[2019-03-17 13:21] LABS: Urine Blood 3+ (NEG); Urine Glucose NEGATIVE (NEG); Urine Protein 3+ (NEG); Urine Specific Gravity 1.015 (1.005-1.030); Urine pH 8.5 (5.0-7.0)
--- NOTE | 2019-03-17 14:09 | ER ---
Nurse's Notes [facility] Name: Josefina Pickering Age: 68 yrs Sex: Female : 1950 Arrival Date: 03/17/2019 Time: 11:38 Bed 23 Private MD: Duran Uribe S Diagnosis: Cystitis, unspecified with hematuria Presentation: 03/17 11:49 Presenting complaint: Patient states: "I have had off and on bladder spasms. Dr. Uribe aj1 has given me diazepam for them if I need them. I dont take them very often. Last night I took one and finally fell asleep, but I felt like I needed to pee all the time and then it started aching" Patient reports blood in urine. Denies fever. Transition of care: patient was not received from another setting of care. Onset of symptoms was March 16, 2018. Risk Assessment: Do you want to hurt yourself or someone else? Patient reports no desire to harm self or others. Initial Sepsis Screen: Does the patient meet any 2 criteria? No. Patient's initial sepsis screen is negative. Does the patient have a suspected source of infection? Yes: Dysuria/Frequency/Urgency/UTI. Care prior to arrival: None. 11:49 Method Of Arrival: Wheelchair aj1 11:49 Acuity: MOISE 3 aj1 Triage Assessment: 11:53 General: Appears in no apparent distress. uncomfortable, Behavior is calm, cooperative, aj1 appropriate for age. Pain: Pain currently is 5 out of 10 on a pain scale. Neuro: Level of Consciousness is awake, alert, obeys commands. Cardiovascular: Patient's skin is warm and dry. Respiratory: Airway is patent Respiratory effort is even, unlabored, Respiratory pattern is regular, symmetrical. Historical: - Allergies: 11:53 Amoxicillin; aj1 11:53 Ciprofloxacin; aj1 11:53 CLAVULANIC ACID; aj1 11:53 Clindamycin; aj1 11:53 Digoxin; aj1 11:53 Doxycycline; aj1 11:53 Nitrofurantoin Macrocrystal; aj1 11:53 sulfamethoxazole-trimethoprim; aj1 11:53 TRIMETHOPRIM; aj1 11:53 VANCOMYCIN AND DERIVATIVES; aj1 11:53 Witch Joy; aj1 - Home Meds: 11:53 cyanocobalamin (vitamin B-12) Oral [Active]; diazepam Oral [Active]; donepezil Oral aj1 [Active]; lansoprazole Oral [Active]; magnesium Oral [Active]; Metoprolol Tartrate Oral [Active]; multivitamin Oral [Active]; Oxybutynin Chloride Oral [Active]; Sulfamylon Topical [Active]; - PMHx: 11:53 central tremor; Diabetes - NIDDM; fall; Hypertension; neuropathy; UTI; aj1 - Immunization history:: Flu vaccine is not up to date. - Social history:: Smoking status: Patient/guardian denies using tobacco. - Ebola Screening: : Patient denies travel to an Ebola-affected area in the 21 days before illness onset. Screenin:09 Abuse screen: Denies threats or abuse. Denies injuries from another. Nutritional ca1 screening: No deficits noted. Tuberculosis screening: No symptoms or risk factors identified. Fall Risk Secondary diagnosis (15 points) impaired mobility, Ambulatory Aid- Crutches/Cane/Walker (15 pts). Gait- Impaired (20 pts.). Total Vasques Fall Scale indicates High Risk Score (45 or more points). Fall prevention measures have been instituted. Side Rails Up X 2 Frequent Obs/Assessments Occuring Family Present and informed to notify staff if the need to leave the bedside As available patient and family educated on Fall Prevention Program and Strategies. Assessment: 12:09 General: Appears in no apparent distress. comfortable, Behavior is calm, cooperative, ca1 appropriate for age. Pain: Complains of pain in epigastric area and suprapubic area Pain currently is 6 out of 10 on a pain scale. at worst was 10 out of 10 on a pain scale. Quality of pain is described as crampy, Pain began 1 day ago. Is intermittent. Neuro: Level of Consciousness is awake, alert, obeys commands, Oriented to person, place, time, situation. Cardiovascular: Heart tones S1 S2 present Capillary refill < 3 seconds Patient's skin is warm and dry. Pulses are all present. Edema is absent. Respiratory: Airway is patent Respiratory effort is even, unlabored, Respiratory pattern is regular, symmetrical, Breath sounds are clear bilaterally. GI: Abdomen is flat, non-distended, Bowel sounds present X 4 quads. Abd is soft and non tender X 4 quads. : Reports urgency, urinary frequency, Blood in urine. EENT: No deficits noted. No signs and/or symptoms were reported regarding the EENT system. Derm: Skin is intact, is healthy with good turgor, Skin is pink, warm \\T\\ dry. Musculoskeletal: Circulation, motion, and sensation intact. Capillary refill < 3 seconds. 13:00 Reassessment: Patient appears in no apparent distress at this time. Patient and/or ca1 family updated on plan of care and expected duration. Pain level reassessed. Patient is alert, oriented x 3, equal unlabored respirations, skin warm/dry/pink. 13:40 Reassessment: Patient appears in no apparent distress at this time. Patient is alert, ca1 oriented x 3, equal unlabored respirations, skin warm/dry/pink. Pt reports blood clots at this time with urine. Notified provider. 13:48 Reassessment: Bladder scanned: 57ml. ca1 14:04 Reassessment: Patient appears in no apparent distress at this time. Patient is alert, ca1 oriented x 3, equal unlabored respirations, skin warm/dry/pink. Dr. Baker at bedside. Vital Signs: 11:53 BP 153 / 96; Pulse 76; Resp 20; Temp 98.9; Pulse Ox 97% on R/A; Weight 70.76 kg (R); aj1 Height 6 ft. 0 in. (182.88 cm) (R); Pain 5/10; 14:04 BP 135 / 66; Pulse 70; Resp 16 S; Pulse Ox 100% on R/A; ca1 11:53 Body Mass Index 21.16 (70.76 kg, 182.88 cm) aj1 ED Course: 11:38 Patient arrived in ED. ag5 11:40 Duran Uribe MD is Private Physician. ag5 11:46 Patient's name was called from ER lobby. No response. aj1 11:52 Triage completed. aj1 11:53 Arm band placed on Patient placed in waiting room, Patient notified of wait time. aj1 12:08 Wai Baker MD is Attending Physician. gs 12:08 Emi Arita, ZHANNA is Primary Nurse. ca1 12:09 Patient has correct armband on for positive identification. Bed in low position. Call ca1 light in reach. Side rails up X 1. Pulse ox on. NIBP on. Warm blanket given. 12:09 No provider procedures requiring assistance completed. ca1 12:40 Initial lab(s) drawn, by me, sent to lab. Inserted saline lock: 22 gauge in right ca1 antecubital area, using aseptic technique. Blood collected. 12:50 Urine Microscopic Only Sent. ca1 12:50 CBC with Diff Sent. ca1 12:50 UA Sent. ca1 12:50 Basic Metabolic Panel Sent. ca1 12:50 Protime (+inr) Sent. ca1 14:08 Yao Holloway MD is Referral Physician. gs 14:20 IV discontinued, intact, bleeding controlled, No redness/swelling at site. Pressure ca1 dressing applied. Administered Medications: No medications were administered Outcome: 14:09 Discharge ordered by MD. 14:20 Discharged to home ambulatory, with friend. ca1 14:20 Condition: stable 14:20 Discharge instructions given to patient, Instructed on discharge instructions, follow up and referral plans. medication usage, Demonstrated understanding of instructions, follow-up care, medications, Prescriptions given X 1. 14:20 Patient left the ED. ca1 Signatures: Brionna Baker RN RN aj1 Wai Baker MD MD Emi Arita RN RN ca1 Lorrie Bellamy ag5
--- NOTE | 2019-03-17 14:10 | EDPHYS ---
Physician Documentation [facility] Name: Josefina Pickering Age: 68 yrs Sex: Female : 1950 Arrival Date: 03/17/2019 Time: 11:38 Bed 23 Private MD: Duran Uribe S ED Physician Wai Baker HPI: 03/17 15:01 This 68 yrs old Female presents to ER via Wheelchair with complaints of Blood gs In Urine. 15:01 Onset: The symptoms/episode began/occurred yesterday. Modifying factors: The symptoms gs are alleviated by nothing, the symptoms are aggravated by nothing. Associated signs and symptoms: Pertinent positives: cramping, dysuria. Severity of symptoms: At their worst the symptoms were moderate, in the emergency department the symptoms have improved, mildly. The patient has experienced similar episodes in the past, multiple times. The patient has not recently seen a physician. Historical: - Allergies: 11:53 Amoxicillin; aj1 11:53 Ciprofloxacin; aj1 11:53 CLAVULANIC ACID; aj1 11:53 Clindamycin; aj1 11:53 Digoxin; aj1 11:53 Doxycycline; aj1 11:53 Nitrofurantoin Macrocrystal; aj1 11:53 sulfamethoxazole-trimethoprim; aj1 11:53 TRIMETHOPRIM; aj1 11:53 VANCOMYCIN AND DERIVATIVES; aj1 11:53 Witch Joy; aj1 - Home Meds: 11:53 cyanocobalamin (vitamin B-12) Oral [Active]; diazepam Oral [Active]; donepezil Oral aj1 [Active]; lansoprazole Oral [Active]; magnesium Oral [Active]; Metoprolol Tartrate Oral [Active]; multivitamin Oral [Active]; Oxybutynin Chloride Oral [Active]; Sulfamylon Topical [Active]; - PMHx: 11:53 central tremor; Diabetes - NIDDM; fall; Hypertension; neuropathy; UTI; aj1 - Immunization history:: Flu vaccine is not up to date. - Social history:: Smoking status: Patient/guardian denies using tobacco. - Ebola Screening: : Patient denies travel to an Ebola-affected area in the 21 days before illness onset. ROS: 15:01 All other systems are negative. gs Exam: 15:01 Head/Face: Normocephalic, atraumatic. Eyes: Pupils equal round and reactive to light, gs extra-ocular motions intact. Lids and lashes normal. Conjunctiva and sclera are non-icteric and not injected. Cornea within normal limits. Periorbital areas with no swelling, redness, or edema. ENT: Nares patent. No nasal discharge, no septal abnormalities noted. Tympanic membranes are normal and external auditory canals are clear. Oropharynx with no redness, swelling, or masses, exudates, or evidence of obstruction, uvula midline. Mucous membranes moist. Neck: Trachea midline, no thyromegaly or masses palpated, and no cervical lymphadenopathy. Supple, full range of motion without nuchal rigidity, or vertebral point tenderness. No Meningismus. Chest/axilla: Normal chest wall appearance and motion. Nontender with no deformity. No lesions are appreciated. Cardiovascular: Regular rate and rhythm with a normal S1 and S2. No gallops, murmurs, or rubs. Normal PMI, no JVD. No pulse deficits. Respiratory: Lungs have equal breath sounds bilaterally, clear to auscultation and percussion. No rales, rhonchi or wheezes noted. No increased work of breathing, no retractions or nasal flaring. Abdomen/GI: Soft, non-tender, with normal bowel sounds. No distension or tympany. No guarding or rebound. No evidence of tenderness throughout. Back: No spinal tenderness. No costovertebral tenderness. Full range of motion. Skin: Warm, dry with normal turgor. Normal color with no rashes, no lesions, and no evidence of cellulitis. MS/ Extremity: Pulses equal, no cyanosis. Neurovascular intact. Full, normal range of motion. Neuro: Awake and alert, GCS 15, oriented to person, place, time, and situation. Cranial nerves II-XII grossly intact. Motor strength 5/5 in all extremities. Sensory grossly intact. Cerebellar exam normal. Normal gait. 15:01 Constitutional: The patient appears alert, awake. 15:01 : Bladder: distension, is not appreciated, tenderness, that is mild. Vital Signs: 11:53 BP 153 / 96; Pulse 76; Resp 20; Temp 98.9; Pulse Ox 97% on R/A; Weight 70.76 kg (R); aj1 Height 6 ft. 0 in. (182.88 cm) (R); Pain 5/10; 14:04 BP 135 / 66; Pulse 70; Resp 16 S; Pulse Ox 100% on R/A; ca1 11:53 Body Mass Index 21.16 (70.76 kg, 182.88 cm) aj1 MDM: 12:13 Patient medically screened. 15:01 Differential diagnosis: urinary tract infection, retention , gross hematuria. Data gs reviewed: vital signs, nurses notes, lab test result(s). Counseling: I had a detailed discussion with the patient and/or guardian regarding: the historical points, exam findings, and any diagnostic results supporting the discharge/admit diagnosis. Physician consultation: Yao Holloway MD and will see patient in 2-3 days. 15:04 ED course: bladder scan, bladder emptied post void. 03/17 12:13 Order name: Urine Microscopic Only; Complete Time: 13:39 03/17 12:13 Order name: CBC with Diff; Complete Time: 13:39 03/17 12:13 Order name: Basic Metabolic Panel; Complete Time: 13:39 03/17 12:13 Order name: Protime (+inr); Complete Time: 13:39 03/17 12:41 Order name: UA; Complete Time: 13:39 gm 03/17 12:55 Order name: Urine Culture [facility] 03/17 12:13 Order name: Urine Dipstick-Ancillary (obtain specimen); Complete Time: 12:50 03/17 13:11 Order name: Urine Dipstick--Ancillary (enter results); Complete Time: 13:39 gm Administered Medications: No medications were administered Disposition: 03/17/19 14:09 Discharged to Home. Impression: Cystitis, unspecified with hematuria. - Condition is Stable. - Discharge Instructions: Urinary Tract Infection, Adult. - Prescriptions for Keflex 500 mg Oral Capsule - take 1 capsule by ORAL route every 12 hours for 10 days; 20 capsule. - Medication Reconciliation Form, Thank You Letter, Antibiotic Education, Prescription Opioid Use form. - Follow up: Yao Holloway MD; When: 1 - 2 days; Reason: Re-evaluation by your physician. Signatures: Dispatcher [employer] EDMS Brionna Baker RN RN aj1 Wai Baker MD MD Emi Arita RN RN ca1 Corrections: (The following items were deleted from the chart) 14:20 14:09 03/17/2019 14:09 Discharged to Home. Impression: Cystitis, unspecified with ca1 hematuria. Condition is Stable. Forms are Medication Reconciliation Form, Thank You Letter, Antibiotic Education, Prescription Opioid Use. Follow up: Yao Holloway; When: 1 - 2 days; Reason: Re-evaluation by your physician. gs
[2019-03-17 14:38] VITALS: TEMP 98.9
[2019-03-17 14:39] VITALS: BP 135/66; O2SAT 100
== END 2019-03-17 14:20 | disposition home or self-care (01) ==
LOC: ER 11:37
DX: N30.91 Cystitis, unspecified with hematuria (principal); I10 Essential (primary) hypertension; E11.9 Type 2 diabetes mellitus without complications; Z88.1 Allergy status to other antibiotic agents; Z88.2 Allergy status to sulfonamides; Z88.3 Allergy status to other anti-infective agents; Z88.8 Allergy status to other drugs, medicaments and biological substances
CPT/HCPCS: 36415; 80048; 81003; 81015; 85025; 85610; 87086; 87088; 99284